=== PATIENT | female | born 1960 | race Caucasian/White ===

== ENCOUNTER → 2017-08-12 06:13 | Outpatient (CLI) | payer OTHER, SELFPAY ==
--- NOTE | 2017-08-12 09:33 | STRESSREP ---
Stress Test Report Date: 08/12/2017 Procedure: Exercise tolerance test/imaging study Indications: Chest pain Consent: Per the patient Procedure: The patient exercised on a Phillip protocol for 9 minutes completing stage III achieving a peak heart rate of 153 bpm (93 % predicted maximal heart rate) with a peak blood pressure 170/72 mmHg and a peak MET capacity of 10 METs. The baseline ECG demonstrated normal sinus rhythm. The peak exercise ECG demonstrated somatic/motion artifact with beat to beat nonspecific ST segment variability with the peak recovery ECG demonstrating approximately 0.[address] segment depression in leads II, III, aVF, and V4 through V6 with resolution towards baseline beginning by 1 minute in recovery. [There were no cardiac dysrhythmias pretest, during exercise, or recovery]. The functional capacity was considered good. There was [no complaint of chest discomfort during exercise or recovery]. The examination was discontinued secondary to dyspnea. Impression: 1. Technically adequate (percent predicted maximal heart rate greater than 85%) exercise tolerance test 2. Peak exercise ECG demonstrating somatic/motion artifact with beat to beat nonspecific ST segment variability with the peak recovery ECG demonstrating approximately 0.[address] segment depression in leads II, III, aVF, and V4 through V6 with resolution towards baseline getting by 1 minute in recovery 3. There were no cardiac dysrhythmias pretest, during exercise, or recovery. 4. Nuclear images pending Myocardial perfusion imaging study: Technique: The patient was injected with 11.9 mCi of technetium 99m Cardiolite and subsequently rest SPECT Cardiolite nuclear imaging was obtained in the horizontal long, vertical long, and short axis views. The patient exercised on a Phillip protocol for 9 minutes completing stage III achieving a peak heart rate of 153 bpm (93 % predicted maximal heart rate) with a peak blood pressure 170/72 mmHg and a peak MET capacity of 10 METs. The patient was injected with 34.2 mCi of technetium 99m Cardiolite and subsequently stress SPECT Cardiolite nuclear imaging was obtained in the horizontal long, vertical long, and short axis views. A gated Cardiolite study at peak stress was obtained. Interpretation: Rest and stress SPECT Cardiolite nuclear imaging status post realignment, normalization, and attenuation correction, demonstrates [the appearance of relative uniform tracer uptake and myocardial perfusion appearing within normal limits]. [There is end systolic thickening and brightening]. The gated Cardiolite study demonstrates [myocardial thickening and inward wall motion]. The reported LVEF is 63 %. Impression: 1. Rest and stress SPECT Cardiolite nuclear imaging demonstrate [relative uniform tracer uptake and myocardial perfusion appearing within normal limits]. 2. The gated Cardiolite study reports an LVEF of 63%. This note was generated with [employer] software. It may contain incorrect words, spelling, and punctuation that were not noted in checking the note before signing.
--- NOTE | 2017-08-12 09:39 | STRESSREP_ITS ---
Stress Test Report Date: 08/12/2017 Procedure: Exercise tolerance test/imaging study Indications: Chest pain Consent: Per the patient Procedure: The patient exercised on a Phillip protocol for 9 minutes completing stage III achieving a peak heart rate of 153 bpm (93 % predicted maximal heart rate) with a peak blood pressure 170/72 mmHg and a peak MET capacity of 10 METs. The baseline ECG demonstrated normal sinus rhythm. The peak exercise ECG demonstrated somatic/motion artifact with beat to beat nonspecific ST segment variability with the peak recovery ECG demonstrating approximately 0.[address] segment depression in leads II, III, aVF, and V4 through V6 with resolution towards baseline beginning by 1 minute in recovery. [There were no cardiac dysrhythmias pretest, during exercise, or recovery]. The functional capacity was considered good. There was [no complaint of chest discomfort during exercise or recovery]. The examination was discontinued secondary to dyspnea. Impression: 1. Technically adequate (percent predicted maximal heart rate greater than 85% ) exercise tolerance test 2. Peak exercise ECG demonstrating somatic/motion artifact with beat to beat nonspecific ST segment variability with the peak recovery ECG demonstrating approximately 0.[address] segment depression in leads II, III, aVF, and V4 through V6 with resolution towards baseline getting by 1 minute in recovery 3. There were no cardiac dysrhythmias pretest, during exercise, or recovery. 4. Nuclear images pending Myocardial perfusion imaging study: Technique: The patient was injected with 11.9 mCi of technetium 99m Cardiolite and subsequently rest SPECT Cardiolite nuclear imaging was obtained in the horizontal long, vertical long, and short axis views. The patient exercised on a Phillip protocol for 9 minutes completing stage III achieving a peak heart rate of 153 bpm (93 % predicted maximal heart rate) with a peak blood pressure 170/ 72 mmHg and a peak MET capacity of 10 METs. The patient was injected with 34.2 mCi of technetium 99m Cardiolite and subsequently stress SPECT Cardiolite nuclear imaging was obtained in the horizontal long, vertical long, and short axis views. A gated Cardiolite study at peak stress was obtained. Interpretation: Rest and stress SPECT Cardiolite nuclear imaging status post realignment, normalization, and attenuation correction, demonstrates [the appearance of relative uniform tracer uptake and myocardial perfusion appearing within normal limits]. [There is end systolic thickening and brightening]. The gated Cardiolite study demonstrates [myocardial thickening and inward wall motion]. The reported LVEF is 63 %. Impression: 1. Rest and stress SPECT Cardiolite nuclear imaging demonstrate [relative uniform tracer uptake and myocardial perfusion appearing within normal limits]. 2. The gated Cardiolite study reports an LVEF of 63%. This note was generated with [employer] software. It may contain incorrect words, spelling, and punctuation that were not noted in checking the note before signing.
== END ==
PROVIDERS: Family Provider Family Medicine; PCP Family Medicine; Visit Provider Family Medicine
DX: R07.9 Chest pain, unspecified (principal); I10 Essential (primary) hypertension; R73.01 Impaired fasting glucose; Z72.0 Tobacco use
CPT/HCPCS: 78452; 93017; A9500; A4216

== ENCOUNTER → 2018-01-24 16:25 | Outpatient (CLI) | payer OTHER, SELFPAY ==
[2018-01-24 17:30] LABS: Absolute Lymphocyte Count 3.54 X10^3/ul (0.83-4.51); Absolute Neutrophil Count 4.5 X10^3/uL (2.0-7.7); Basophil# 0.03 X10^3/uL; Basophil% 0.3 % (0-1); Eosinophil# 0.31 X10^3/uL; Eosinophils% 3.3 % (0-5); Hematocrit 38.9 % (37-47); Hemoglobin 12.6 g/dl (12.0-15.0); Lymphocyte # 3.54 X10^3/ul (4.0); Lymphocyte % 37.9 % (19-41); Mean Corp Hgb Conc 32.4 g/gl (32-36); Mean Corpuscular Hgb 31.4 pg (27.0-32.0); Mean Platelet Vol. 10.3 fl (6.2-12.0); Monocyte# 0.91 X10^3/uL; Monocyte% 9.7 % (0-10); Neutrophil # 4.52 X10^3/uL (2.7-7.7); Neutrophil % 48.5 % (47-70); Platelet Count 312 K/mm3 (150-450); RBC Distribution Width CV 14.9 % (11.6-14.6); RBC Distribution Width SD 51.7 fl (35.1-43.9); Red Blood Count 4.01 M/mm3 (4.2-5.4); White Blood Count 9.3 K/mm3 (4.4-11.0)
[2018-01-24 17:31] LABS: POSITIVE COUNT NO; POSITIVE DIFFERENTIAL NO; POSITIVE MORPHOLOGY NO
[2018-01-24 17:50] LABS: ALB/GLOB Ratio 0.8 RATIO (0.9-2.4); AST(SGOT) 23 U/L (15-37); Alanine Aminotransfer ALT/SGPT 28 U/L (13-56); Albumin, Serum 3.4 g/dL (3.2-5.0); Alkaline Phosphatase 115 U/L (45-117); Anion Gap 5 (5-15); BUN 19 mg/dL (7-18); BUN/Creat Ratio 21.9 RATIO (10-20); Calcium,Total 9.1 mg/dL (8.5-10.1); Chloride 101 mmol/L (98-107); Creatinine, Serum 0.87 mg/dL (0.55-1.02); EST Glomerular Filtration Rate 72 mL/min (>60); Est Glom Filt Rate - Afr Amer 87 mL/min (>60); Glucose 104 mg/dL (74-106); Potassium 3.6 mmol/L (3.5-5.1); Protein, Total 7.4 g/dL (6.4-8.2); Sodium Level 138 mmol/L (136-145)
== END ==
PROVIDERS: Family Provider Family Medicine; PCP Family Medicine; Visit Provider Family Medicine
DX: R10.9 Unspecified abdominal pain (principal)
CPT/HCPCS: 36415; 80053; 85025

== ENCOUNTER → 2018-06-14 08:29 | Outpatient (CLI) | payer OTHER, SELFPAY ==
[2018-05-25 08:42] VITALS: BMI 31.5
--- NOTE | 2018-06-14 07:20 | BI_ITS ---
MAMMOGRAPHY - BILATERAL SCREENING REASON FOR EXAM: Female, 58 years old. Routine annual screening examination. PERTINENT HISTORY: Non-contributory. TECHNIQUE: Digital bilateral breast sofía (3D mammographic acquisition) in the CC and MLO projections. 2-D mediolateral oblique (MLO) and craniocaudad (CC) views of both breasts were obtained. CAD: Full Field Digital Mammography with Computer Added Detection was performed. COMPARISON: Comparison is made with prior study dated May 11, 2017. FINDINGS: Breast Composition: The breasts are heterogeneously dense, which may obscure small masses. There are no dominant masses or suspicious calcifications. No other significant abnormalities are identified. There has been no significant change since the prior study. BI/SCREEN MAMM (CAD) W/SOFÍA BILAT IMPRESSION: Stable bilateral screening mammogram. Yearly follow-up mammogram recommended. (A) ASSESSMENT CATEGORY: BIRADS Category 1: Negative. A letter regarding these results will be sent to the patient by the facility within 30 days. Approximately 10% of breast cancers are not detected by mammography. A normal mammogram should not delay biopsy of a clinically suspicious abnormality. [id number] Electronically Signed: Jack Shea MD at 9:03 EST , Service support ,
== END ==
PROVIDERS: Family Provider Family Medicine; PCP Family Medicine; Referring Provider Nurse Practitioner Women's Health; Visit Provider Nurse Practitioner Women's Health
DX: Z12.31 Encounter for screening mammogram for malignant neoplasm of breast (principal)
CPT/HCPCS: 77063; 77067

== ENCOUNTER → 2018-08-16 12:26 | Outpatient (CLI) | payer OTHER, SELFPAY ==
[2018-07-25 10:50] VITALS: BMI 31.5
--- NOTE | 2018-08-16 13:23 | CT_ITS ---
STUDY: LOW DOSE CT LUNG CANCER SCREENING REASON FOR EXAM: Female, 58 years old. 40 year pack year smoking history. RADIATION DOSAGE (If Supplied By Facility): CTDIvol = ( 2.55 ) mGy, DLP = ( 81.69 ) mGycm TECHNIQUE: No contrast was administered. Low dose technique was utilized (average mAS-38 and kVp 120). 1.25 mm axial source images with a slice interval of 1.25-mm were reconstructed in lung windows. 2.5 mm axial source images with a slice interval of 2.5-mm were reconstructed in lung windows. 5.0 mm axial source images with a slice interval of 5.0-mm were reconstructed in soft tissue windows. Nodule measured using lung windows on PACS and/or independent workstation with automated measurement of minimum and maximum diameter. Nodule measurement reported as average diameter rounded to the nearest whole number. Growth is defined as an increase ins size of greater than 1.5 mm. COMPARISON: None. NODULES: No pulmonary nodules are seen. Emphysema: No evidence of emphysema. Endobronchial lesion: None. Aorta: Minimal atherosclerotic calcification of the aortic arch. Coronary arteries: Coronary artery calcification. Mediastinal nodes: Small mediastinal lymph nodes within normal limits. Other chest and abdominal findings: Degenerative changes of the thoracic vertebrae. CT/Low Dose CT Lung Screening IMPRESSION: Lung-RADS category 2 - Continue annual screening with LDCT in 12 months. IMPORTANT NOTES FOR USE: ACR Lung-RADS Version 1.0 Assessment Categories Release Date: August 28, 2013 Category: Coded 0-4 bases on nodule(s) with highest degree of suspicion. Negative screen is defined as categories 1 and 2; a positive screen is defined as categories 3 and 4. Category 3 and 4A nodules that are unchanged on interval CT should be coded as category 2, and individuals returned to screening in 12 months. Category 4X: Category 3 or 4 nodules with additional imaging findings that increase the suspicion of lung cancer, such as spiculation, GGN that doubles in size in 1 year, enlarged lymph notes, etc. Category Modifiers: S (significant finding unrelated to lung cancer) and C (prior history of treated lung cancer) may be added to the 0-4 Lung-RADS Electronically Signed: Jack Shea, at 14:03 EDT , Service support ,
== END ==
PROVIDERS: Family Provider Family Medicine; PCP Family Medicine; Referring Provider Nurse Practitioner Family; Visit Provider Nurse Practitioner Family
DX: Z12.2 Encounter for screening for malignant neoplasm of respiratory organs (principal); Z87.891 Personal history of nicotine dependence
CPT/HCPCS: G0297

== ENCOUNTER → 2018-08-18 08:42 | Outpatient (CLI) | payer OTHER, SELFPAY ==
[2018-07-25 10:50] VITALS: BMI 31.5
[2018-08-16 12:50] VITALS: BMI 32.4
--- NOTE | 2018-08-18 15:05 | PFTCOMP ---
COMPLETE PULMONARY FUNCTION TEST INTERPRETATION Brief HPI: Patient is a 58 year old female, currently under the care of Dr. Lao, who presents to [facility] for complete pulmonary function tests secondary to diagnosis of dyspnea. Respiratory therapist reports good effort and reproducible results. Interpretation: Forced expiration spirometry shows a mild large airways obstructive ventilatory defect with an FEV1 of 90% predicted. There is a significant bronchodilator response in FEV1 by strict ATS criteria. Spirograms are of good quality and plateau slowly, indicating slowly emptying areas of the lungs. The respiratory flow volume loop shows decreased expiratory flow rates at all lung volumes consistent with airway obstruction. Lung volumes by body plethysmography show a normal total lung capacity at 4.89 L, 104% predicted. All other lung volumes are within normal limits. Diffusion capacity by carbon monoxide is at the lower limit of normal at 65% predicted. The airway resistance is elevated. No previous pulmonary function tests were available for review. Impression: Partially reversible mild large airways obstructive ventilatory defect with a symmetric reduction diffusing capacity
== END ==
PROVIDERS: Family Provider Family Medicine; PCP Family Medicine; Referring Provider Family Medicine; Visit Provider Family Medicine
DX: R06.02 Shortness of breath (principal); Z72.0 Tobacco use
CPT/HCPCS: 94060; 94726; 94729

== ENCOUNTER → 2018-08-26 14:44 | Outpatient (CLI) | payer OTHER, SELFPAY ==
[2018-08-16 12:50] VITALS: BMI 32.4
[2018-08-26 16:01] LABS: Anion Gap 7 (5-15); BUN 20 mg/dL (7-18); BUN/Creat Ratio 21.5 RATIO (10-20); Calcium,Total 9.1 mg/dL (8.5-10.1); Chloride 102 mmol/L (98-107); Creatinine, Serum 0.93 mg/dL (0.55-1.02); EST Glomerular Filtration Rate 66 mL/min (>60); Est Glom Filt Rate - Afr Amer 80 mL/min (>60); Glucose 133 mg/dL (74-106); Potassium 3.5 mmol/L (3.5-5.1); Sodium Level 139 mmol/L (136-145)
== END ==
PROVIDERS: Family Provider Family Medicine; PCP Family Medicine; Referring Provider Family Medicine; Visit Provider Family Medicine
DX: I10 Essential (primary) hypertension (principal)
CPT/HCPCS: 36415; 80048

== ENCOUNTER 2018-11-28 13:00 | Outpatient (RCR) | payer OTHER, SELFPAY ==
[2018-08-16 12:50] VITALS: BMI 32.4
[2018-10-24 14:54] VITALS: BMI 32.4
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
--- NOTE | 2019-01-03 10:16 | HP.PTDCSUM ---
HP - PT D/C Summary It has been my pleasure to treat DIVYA PETTY under orders from Mario Bass MD, for the diagnosis of DDD,SPONYLOSIS OF LUMBAR for a total of 8 visit(s). Discharge Date: Please see the following information for a summary of their discharge status. - Subjective Subjective: Doing about same . 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 Seen chiropractor as well - Pain Left Back Pain Intensity (Out of 10): 7 Left Lower Extremity Pain Intensity (Out of 10): 7 - Objective Objective/Function: POSTURE: mild posture. GAIT: reciprcoal pattern. MMT:quads/hams 4/5,hip flexion 4-/5. LUMBAR ROM: flexion loss,extension mod loss pain - Goals Goal 1:: Independant with HEP. Goal 2:: Patient to be Independant with posture/body mechanics Goal 3:: Patient to be 60% or better with kless pain to improve function Goal 4:: Patient improve lumbar ROM for function of recovery Goal 5:: Patient to improve back owestry score by 5 points or greater to improve QOL - Plan Plan: RTD for further diagnostics - D/C Information If there are questions or concerns regarding this patient's physical therapy, please feel free to call me at [phone]. Thank you for the referral of this patient. Sincerely, Rolan Leggett, PT, Cert MDT, OCS
== END 2018-11-28 19:00 | disposition home or self-care (01) ==
LOC: PT 13:00
PROVIDERS: Family Provider Family Medicine; PCP Family Medicine; Referring Provider Orthopaedic Surgery; Visit Provider Orthopaedic Surgery
DX: M54.16 Radiculopathy, lumbar region (principal)
CPT/HCPCS: 97014; 97035; 97110; 97161; 97530; G0283

== ENCOUNTER → 2019-02-22 07:15 | Outpatient (CLI) | payer SELFPAY ==
[2018-10-24 14:54] VITALS: BMI 32.4
--- NOTE | 2019-02-22 07:17 | MRI_ITS ---
STUDY: MRI LUMBAR SPINE WITHOUT CONTRAST REASON FOR EXAM: Female, 58 years old. Low back pain, bilateral leg pain and radiculopathy. TECHNIQUE: Standardized fat and water weighted pulse sequences were obtained in the sagittal and axial planes. COMPARISON: None FINDINGS: T12-L1: Normal endplates. Normal disc height, hydration and morphology. Normal bilateral facet joints. Normal central canal and bilateral lateral recesses. Normal bilateral intervertebral neural foramina. Normal lumbar lordosis. Mild levoscoliosis centered at L3/L4. Normal conus medullaris that terminates at the L1. L1-2: Normal endplates. Normal disc height, hydration and morphology. Normal bilateral facet joints. Normal central canal and bilateral lateral recesses. Normal bilateral intervertebral neural foramina. L2-3: Mild bilateral facet hypertrophy and ligament flavum hypertrophy. Mild bilobed disc protrusion produces mild spinal stenosis and mild bilateral neural foraminal stenosis. L3-4: Mild bilateral facet hypertrophy and ligament flavum hypertrophy. 2 mm of anterolisthesis of L3 on L4 with a mild bilobed disc protrusion produces mild spinal stenosis and mild bilateral neural foraminal stenosis. L4-5: Mild broad disc protrusion produces mild spinal stenosis and mild bilateral neural foraminal stenosis L5-S1: Normal endplates. Normal disc height, hydration and morphology. Normal bilateral facet joints. Normal central canal and bilateral lateral recesses. Normal bilateral intervertebral neural foramina. Normal visualized sacral ala. Normal visualized paraspinous soft tissue structures. MRI/Spine Lumbar (Routine) IMPRESSION: Mild levoscoliosis and degenerative disc disease as described above. Electronically Signed: Jhon Feliciano MD at 10:23 EDT Tel , Service support ,
== END ==
PROVIDERS: Family Provider Family Medicine; PCP Family Medicine; Referring Provider Chiropractor; Visit Provider Chiropractor
DX: M99.03 Segmental and somatic dysfunction of lumbar region (principal)
CPT/HCPCS: 72148

== ENCOUNTER → 2019-04-24 07:11 | Outpatient (CLI) | payer OTHER, SELFPAY ==
[2019-04-12 15:47] VITALS: BMI 32.2
--- NOTE | 2019-04-24 07:23 | EKG12_ITS ---
Test Reason : ROUTINE Blood Pressure : / mmHG Vent. Rate : 066 BPM Atrial Rate : 066 BPM P-R Int : 156 ms QRS Dur : 082 ms QT Int : 386 ms P-R-T Axes : 068 072 073 degrees QTc Int : 404 ms Normal sinus rhythm Normal ECG Confirmed by NNEKA VALDEZ, BUDDY ([id number]), news assignment editor LORETO JARA ([id number]) on 04/25/2019 11:43:33 AM Referred By: Anne-Marie Martínez Confirmed By:BUDDY EARLY MD
[2019-04-24 08:15] LABS: Absolute Lymphocyte Count 3.58 X10^3/uL (0.83-4.51); Absolute Neutrophil Count 5.5 X10^3/uL (2.0-7.7); Basophil# 0.04 X10^3/uL; Basophil% 0.4 % (0-1); Eosinophil# 0.33 X10^3/uL; Eosinophils% 3.2 % (0-5); Hematocrit 37.7 % (37-47); Lymphocyte # 3.58 X10^3/ul (4.0); Lymphocyte % 34.3 % (19-41); Mean Corp Hgb Conc 31.8 g/dL (32-36); Mean Corpuscular Hgb 28.2 pg (27.0-32.0); Mean Corpuscular Volume 88.7 fL (81-99); Mean Platelet Vol. 9.7 fl (6.2-12.0); Monocyte# 0.92 X10^3/uL; Monocyte% 8.8 % (0-10); NRBC Flagged by Analyzer 0 % (0-5); Neutrophil % 52.6 % (47-70); POSITIVE MORPHOLOGY YES; Platelet Count 375 K/mm3 (150-450); RBC Distribution Width CV 16.2 % (11.6-14.6); RBC Distribution Width SD 52.5 fl (35.1-43.9); Red Blood Count 4.25 M/mm3 (4.2-5.4); White Blood Count 10.4 K/mm3 (4.4-11.0)
[2019-04-24 08:16] LABS: Differential Indicated SCAN CRITERIA MET
[2019-04-24 08:39] LABS: ALB/GLOB Ratio 0.9 RATIO (0.9-2.4); AST(SGOT) 23 U/L (15-37); Alanine Aminotransfer ALT/SGPT 32 U/L (13-56); Albumin, Serum 3.5 g/dL (3.2-5.0); Alkaline Phosphatase 114 U/L (45-117); Anion Gap 6 (5-15); BUN 13 mg/dL (7-18); BUN/Creat Ratio 15.3 RATIO (10-20); Calcium,Total 9.2 mg/dL (8.5-10.1); Chloride 97 mmol/L (98-107); Cholesterol 184 mg/dL (200); Creatinine, Serum 0.85 mg/dL (0.55-1.02); EST Glomerular Filtration Rate 73 mL/min (>60); Est Glom Filt Rate - Afr Amer 88 mL/min (>60); Glucose 106 mg/dL (74-106); High Density Lipoprotein 58 mg/dL; Potassium 3.2 mmol/L (3.5-5.1); Protein, Total 7.5 g/dL (6.4-8.2); Sodium Level 135 mmol/L (136-145); Triglycerides 178 mg/dL; Very Low Density Lipoprotein 36 mg/dL (5-40)
[2019-04-24 08:49] LABS: Differential Comment SCANNED; Reactive Lymphocyte 1+
== END ==
PROVIDERS: Family Provider Internal Medicine; PCP Internal Medicine; Referring Provider Internal Medicine; Visit Provider Internal Medicine
DX: I10 Essential (primary) hypertension (principal)
CPT/HCPCS: 36415; 80053; 80061; 85025; 93005

== ENCOUNTER → 2019-07-05 10:41 | Outpatient (CLI) | payer OTHER, SELFPAY ==
[2019-05-24 13:24] VITALS: BMI 32.2
[2019-07-05 13:07] LABS: Anion Gap 5 (5-15); BUN 16 mg/dL (7-18); BUN/Creat Ratio 18.8 RATIO (10-20); Calcium,Total 9.4 mg/dL (8.5-10.1); Chloride 102 mmol/L (98-107); Creatinine, Serum 0.85 mg/dL (0.55-1.02); EST Glomerular Filtration Rate 73 mL/min (>60); Est Glom Filt Rate - Afr Amer 88 mL/min (>60); Glucose 87 mg/dL (74-106); Potassium 3.7 mmol/L (3.5-5.1); Sodium Level 137 mmol/L (136-145)
== END ==
PROVIDERS: PCP Internal Medicine; Referring Provider Nurse Practitioner Family; Visit Provider Nurse Practitioner Family
DX: I10 Essential (primary) hypertension (principal); E87.6 Hypokalemia
CPT/HCPCS: 36415; 80048

== ENCOUNTER → 2019-09-26 12:30 | Outpatient (CLI) | payer OTHER, SELFPAY ==
[2019-08-25 10:07] VITALS: BMI 32.2
[2019-09-26 12:11] VITALS: BMI 31.8
--- NOTE | 2019-09-26 12:31 | CT_ITS ---
STUDY: LOW DOSE CT LUNG CANCER SCREENING REASON FOR EXAM: Female, 59 years old. TOBACCO ABUSE 1PPD X38 YEARS RADIATION DOSAGE (If Supplied By Facility): CTDIvol = ( 3.02 ) mGy, DLP = ( 102.69 ) mGycm TECHNIQUE: No contrast was administered. Low dose technique was utilized (average mAS-38 and kVp 120). 1.25 mm axial source images with a slice interval of 1.25-mm were reconstructed in lung windows. 2.5 mm axial source images with a slice interval of 2.5-mm were reconstructed in lung windows. 5.0 mm axial source images with a slice interval of 5.0-mm were reconstructed in soft tissue windows. Nodule measured using lung windows on PACS and/or independent workstation with automated measurement of minimum and maximum diameter. Nodule measurement reported as average diameter rounded to the nearest whole number. Growth is defined as an increase ins size of greater than 1.5 mm. COMPARISON: Comparison is made with prior examination dated August 16, 2018. NODULES: No pulmonary nodules are seen. Emphysema: No significant emphysematous changes are present. Endobronchial lesion: None Aorta: Minimal atherosclerotic calcification of the aortic arch. Coronary arteries: Coronary artery calcification. Mediastinal nodes: Small scattered benign-appearing mediastinal lymph nodes. Other chest and abdominal findings: Degenerative changes of the thoracic spine. CT/Low Dose CT Lung Screening IMPRESSION: Lung-RADS category 2 - Continue annual screening with LDCT in 12 months. IMPORTANT NOTES FOR USE: ACR Lung-RADS Version 1.0 Assessment Categories Release Date: August 28, 2013 Category: Coded 0-4 bases on nodule(s) with highest degree of suspicion. Negative screen is defined as categories 1 and 2; a positive screen is defined as categories 3 and 4. Category 3 and 4A nodules that are unchanged on interval CT should be coded as category 2, and individuals returned to screening in 12 months. Category 4X: Category 3 or 4 nodules with additional imaging findings that increase the suspicion of lung cancer, such as spiculation, GGN that doubles in size in 1 year, enlarged lymph notes, etc. Category Modifiers: S (significant finding unrelated to lung cancer) and C (prior history of treated lung cancer) may be added to the 0-4 Lung-RADS Electronically Signed: Jack Shea, at 13:01 EDT , Service support ,
== END ==
PROVIDERS: PCP Internal Medicine; Referring Provider Nurse Practitioner Family; Visit Provider Nurse Practitioner Family
DX: Z12.2 Encounter for screening for malignant neoplasm of respiratory organs (principal); F17.209 Nicotine dependence, unspecified, with unspecified nicotine-induced disorders
CPT/HCPCS: G0297

== ENCOUNTER → 2020-02-02 09:08 | Outpatient (CLI) | payer OTHER, SELFPAY ==
[2020-02-02 08:21] VITALS: BMI 31.8
[2020-02-02 12:14] LABS: Absolute Lymphocyte Count 2.75 X10^3/uL (0.83-4.51); Absolute Neutrophil Count 4.9 X10^3/uL (2.0-7.7); Basophil# 0.05 X10^3/uL; Basophil% 0.6 % (0-1); Eosinophil# 0.26 X10^3/uL; Hemoglobin 14.2 g/dL (12.0-15.0); Lymphocyte # 2.75 X10^3/ul (4.0); Lymphocyte % 31.5 % (19-41); Mean Corp Hgb Conc 32.3 g/dL (32-36); Mean Corpuscular Hgb 31.6 pg (27.0-32.0); Mean Platelet Vol. 10.2 fl (6.2-12.0); Monocyte# 0.71 X10^3/uL; Monocyte% 8.1 % (0-10); NRBC Flagged by Analyzer 0 % (0-5); Neutrophil # 4.93 X10^3/uL (2.7-7.7); Neutrophil % 56.5 % (47-70); Platelet Count 298 K/mm3 (150-450); RBC Distribution Width CV 14.3 % (11.6-14.6); RBC Distribution Width SD 51.8 fl (35.1-43.9); Red Blood Count 4.49 M/mm3 (4.2-5.4); White Blood Count 8.7 K/mm3 (4.4-11.0)
[2020-02-02 12:32] LABS: Hemoglobin A1c 5.9 % (3.8-5.6)
[2020-02-02 12:56] LABS: AST(SGOT) 20 U/L (15-37); Alanine Aminotransfer ALT/SGPT 26 U/L (13-56); Albumin, Serum 3.8 g/dL (3.2-5.0); Alkaline Phosphatase 111 U/L (45-117); Anion Gap 4 (5-15); BUN 11 mg/dL (7-18); BUN/Creat Ratio 14.6 RATIO (10-20); Calcium,Total 9.5 mg/dL (8.5-10.1); Chloride 102 mmol/L (98-107); Cholesterol 208 mg/dL (200); Creatinine, Serum 0.76 mg/dL (0.55-1.02); EST Glomerular Filtration Rate 83 mL/min (>60); Est Glom Filt Rate - Afr Amer 101 mL/min (>60); Globulin 3.9 g/dL (2.2-4.2); Glucose 94 mg/dL (74-106); High Density Lipoprotein 70 mg/dL; Potassium 4.3 mmol/L (3.5-5.1); Protein, Total 7.7 g/dL (6.4-8.2); Sodium Level 135 mmol/L (136-145); Triglycerides 140 mg/dL; Very Low Density Lipoprotein 28 mg/dL (5-40)
== END ==
PROVIDERS: PCP Internal Medicine; Referring Provider Internal Medicine; Visit Provider Internal Medicine
DX: Z00.00 Encounter for general adult medical examination without abnormal findings (principal); R73.03 Prediabetes
CPT/HCPCS: 36415; 80053; 80061; 83036; 85025

== ENCOUNTER → 2020-02-23 12:23 | Outpatient (CLI) | payer OTHER, SELFPAY ==
[2020-02-02 08:21] VITALS: BMI 31.8
--- NOTE | 2020-02-23 12:25 | BI_ITS ---
MAMMOGRAPHY - BILATERAL SCREENING REASON FOR EXAM: Female, 59 years old. Routine annual screening examination. PERTINENT HISTORY: Non-contributory. TECHNIQUE: Digital bilateral breast sofía (3D mammographic acquisition) in the CC and MLO projections. 2-D mediolateral oblique (MLO) and craniocaudad (CC) views of both breasts were obtained. CAD: Full Field Digital Mammography with Computer Added Detection was performed. COMPARISON: Comparison is made with prior examination dated 06/14/2018 and 05/11/2017. FINDINGS: Breast Composition: The breasts are heterogeneously dense, which may obscure small masses. There are no dominant masses or suspicious calcifications. No other significant abnormalities are identified. There has been no significant change since the prior study. BI/SCREEN MAMM (CAD) W/SOFÍA BILAT IMPRESSION: Stable bilateral screening mammogram. Yearly follow-up mammogram recommended. (A) ASSESSMENT CATEGORY: BIRADS Category 1: Negative. A letter regarding these results will be sent to the patient by the facility within 30 days. Approximately 10% of breast cancers are not detected by mammography. A normal mammogram should not delay biopsy of a clinically suspicious abnormality. [id number] Electronically Signed: Jack Shea, at 14:34 EDT , Service support ,
== END ==
PROVIDERS: PCP Internal Medicine; Referring Provider Internal Medicine; Visit Provider Internal Medicine
DX: Z12.31 Encounter for screening mammogram for malignant neoplasm of breast (principal)
CPT/HCPCS: 77063; 77067

== ENCOUNTER → 2020-03-12 13:24 | Outpatient (CLI) | payer OTHER, SELFPAY ==
[2020-03-01 08:44] VITALS: BMI 32.1
--- NOTE | 2020-03-12 13:35 | RAD_ITS ---
STUDY: X-RAY - ABDOMEN/PELVIS REASON FOR EXAM: Female, 59 years old. left sided/mid abdomen pain TECHNIQUE: AP supine and upright views of the abdomen and pelvis. COMPARISON: None. FINDINGS: Normal visualized lung bases. There is an unremarkable bowel gas pattern. There is no demonstrated free abdominal air. The visualized liver, spleen and kidneys are grossly normal in size and morphology. Normal soft tissue structures. Mild levoscoliosis of the lumbar spine. RAD/Abd Inc Decub and/or Erect IMPRESSION: Normal x-ray examination of the abdomen and pelvis. Electronically Signed: Jhon Feliciano MD at 17:04 EST Tel , Service support ,
[2020-03-12 15:24] LABS: Absolute Lymphocyte Count 2.97 X10^3/uL (0.83-4.51); Absolute Neutrophil Count 5.1 X10^3/uL (2.0-7.7); Basophil# 0.04 X10^3/uL; Basophil% 0.4 % (0-1); Eosinophil# 0.35 X10^3/uL; Eosinophils% 3.8 % (0-5); Hematocrit 40.2 % (37-47); Hemoglobin 12.9 g/dL (12.0-15.0); Lymphocyte # 2.97 X10^3/ul (4.0); Lymphocyte % 32.3 % (19-41); Mean Corp Hgb Conc 32.1 g/dL (32-36); Mean Corpuscular Hgb 32.4 pg (27.0-32.0); Mean Platelet Vol. 10.7 fl (6.2-12.0); Monocyte# 0.71 X10^3/uL; Monocyte% 7.7 % (0-10); NRBC Flagged by Analyzer 0 % (0-5); Neutrophil # 5.08 X10^3/uL (2.7-7.7); Neutrophil % 55.4 % (47-70); Platelet Count 292 K/mm3 (150-450); RBC Distribution Width CV 13.8 % (11.6-14.6); RBC Distribution Width SD 51.8 fl (35.1-43.9); Red Blood Count 3.98 M/mm3 (4.2-5.4); White Blood Count 9.2 K/mm3 (4.4-11.0)
[2020-03-12 15:45] LABS: ALB/GLOB Ratio 0.9 RATIO (0.9-2.4); AST(SGOT) 23 U/L (15-37); Alanine Aminotransfer ALT/SGPT 36 U/L (13-56); Albumin, Serum 3.6 g/dL (3.2-5.0); Alkaline Phosphatase 76 U/L (45-117); Anion Gap 6 (5-15); BUN 21 mg/dL (7-18); BUN/Creat Ratio 28.3 RATIO (10-20); CRP, High Sensitivity Cardiac 7.86 mg/L; Calcium,Total 9.1 mg/dL (8.5-10.1); Chloride 103 mmol/L (98-107); Creatinine, Serum 0.74 mg/dL (0.55-1.02); EST Glomerular Filtration Rate 85 mL/min (>60); Est Glom Filt Rate - Afr Amer 103 mL/min (>60); Globulin 3.8 g/dL (2.2-4.2); Glucose 85 mg/dL (74-106); Potassium 4.1 mmol/L (3.5-5.1); Protein, Total 7.4 g/dL (6.4-8.2); Sodium Level 137 mmol/L (136-145)
== END ==
PROVIDERS: PCP Internal Medicine; Referring Provider Family Medicine; Visit Provider Family Medicine
DX: R10.9 Unspecified abdominal pain (principal)
CPT/HCPCS: 36415; 74019; 80053; 85025; 86141

== ENCOUNTER → 2020-05-13 14:53 | Outpatient (CLI) | payer OTHER, SELFPAY ==
[2020-05-07 09:41] VITALS: BMI 32.4
--- NOTE | 2020-05-13 15:06 | CT_ITS ---
STUDY: CT ABDOMEN AND PELVIS WITH CONTRAST REASON FOR EXAM: Female, 60 years old. ABDOMINAL PAIN X MONTHS RADIATION DOSAGE (If Supplied By Facility): CTDIvol = ( 13.73 ) mGy, DLP = ( 888.18 ) mGycm TECHNIQUE: Transaxial images were obtained from the dome of the diaphragm to the symphysis pubis with oral contrast. Oral and amp; IV Readi-CAT and amp; 100mL Isovue-370 was administered. Sagittal and coronal images were reconstructed. Individualized dose optimization techniques were used for this CT. COMPARISON: None. FINDINGS: The visualized lung bases are unremarkable. The visualized portions of the heart are within normal limits. Multiple small subcentimeter hepatic cysts. Normal gallbladder and extrahepatic biliary system. Normal spleen. Normal pancreas. Normal bilateral adrenal glands. Normal right kidney. Normal left kidney. Normal visualized stomach. Normal small intestine. Normal colon. The appendix is visualized and appears normal. There is diffuse atherosclerotic calcification of the abdominal aorta, without a demonstrated aneurysm. Normal inferior vena cava. Normal retroperitoneum. Normal urinary bladder. There is a small umbilical hernia containing fat. Mild levoscoliosis lumbar spine with degenerative disc disease per CT/Abdomen/Pelvis WITH Contrast IMPRESSION: No acute abnormality. Electronically Signed: Jhon Feliciano MD at 16:05 EST Tel , Service support ,
== END ==
PROVIDERS: PCP Internal Medicine; Referring Provider Internal Medicine; Visit Provider Internal Medicine
DX: K57.92 Diverticulitis of intestine, part unspecified, without perforation or abscess without bleeding (principal)
CPT/HCPCS: 74177; Q9967

== ENCOUNTER → 2020-06-14 12:38 | Outpatient (CLI) | payer OTHER, SELFPAY ==
[2020-05-07 09:41] VITALS: BMI 32.4
== END ==
PROVIDERS: PCP Internal Medicine; Visit Provider Family Medicine
DX: Z20.822 Contact with and (suspected) exposure to COVID-19 (principal)
CPT/HCPCS: 87635; U0002

== ENCOUNTER → 2020-07-17 16:26 | Outpatient (CLI) | payer OTHER, SELFPAY ==
[2020-05-07 09:41] VITALS: BMI 32.4
[2020-07-19 16:09] LABS: Endomysial Antibody IgA Negative (Negative)
[2020-07-19 17:06] LABS: Immunoglobulin A 217 mg/dL (87-352); t-Transglutaminase IgA <2 U/mL (0-3)
== END ==
PROVIDERS: PCP Internal Medicine; Referring Provider Internal Medicine Gastroenterology; Visit Provider Internal Medicine Gastroenterology
DX: R19.7 Diarrhea, unspecified (principal)
CPT/HCPCS: 36415; 82784; 83516; 86140; 86255

== ENCOUNTER → 2020-08-02 15:21 | Outpatient (CLI) | payer OTHER, SELFPAY ==
[2020-05-07 09:41] VITALS: BMI 32.4
--- NOTE | 2020-08-02 11:28 | COLBX_PTH ---
PATIENT: DIVYA PETTY LOC: [facility] U#:[id number] AGE/SX: 64/F ROOM: RE08/02/[address]: Dr. Stefano Menjivar MD : 1960 BED: DIS: SPEC #: [id number] RECD: 08/02/20 15:02 STATUS: ELIF BERNARDO #: [id number] OZZIE: 08/02/20 11:[address]: Stefano Menjivar DEPT: SURGICAL PATHOLOGY RECD BY: Radha Corcoran ENTERED: 08/05/20 08:24 SP TYPE: COLON BX OTHR DR: Dr. Anne-Marie Martínez MD [facility] Tissues: A - Ileum, NOS B - COLON BIOPSY C - COLON BIOPSY Procedures: Trichrome (control) Special Stain Group II Surgery Specimen Level IV HEADER OPERATION: Colonoscopy with biopsies PRE-OP DIAGNOSIS: Diarrhea, abdominal pain TISSUE SUBMITTED: A - Biopsy terminal ileum, rule out Crohn's, B - Right and left colon, rule out microscopic colitis, C - Biopsy polyp at 20 cm, rule out adenoma MICROSCOPIC DIAGNOSIS A. Terminal ileum, biopsy: No pathologic change. See comment. B. Right and left colon, biopsy: Collagenous colitis. See comment. C. Polyp at 20 cm, biopsy: Fragments of hyperplastic polyp. Lymphocytic colitis. AM:liliya 08/06/2020 COMMENT A. No evidence of Crohn's ileitis. B. Trichrome stain with matched control reveals focally thickened basal plate. Lymphocytes are increased in the mucosa. Clinical correlation is suggested. MICROSCOPIC DESCRIPTION Slides are reviewed. GROSS DESCRIPTION A - Received in fixative is one container labeled with the patient's name and designated biopsy terminal ileum. The specimen consists of multiple irregular fragments of light kan soft tissue that in aggregate measure 1 x 0.3 x 0.1 cm. The specimen is totally submitted in one cassette. B - Received in fixative is one container labeled with the patient's name and designated biopsy right and left colon. The specimen consists of multiple irregular fragments of light kan soft tissue that in aggregate measure 2 x 0.5 x 0.1 cm. The specimen is totally submitted in one cassette. C - Received in fixative is one container labeled with the patient's name and designated biopsy polyp at 20 cm. The specimen consists of two irregular fragments of light kan soft tissue that in aggregate measure 0.4 x 0.3 x 0.1 cm. The specimen is totally submitted in one cassette. / SJ:rg 08/05/20 TC:3 CPT: 99115 x3, 99002
== END ==
PROVIDERS: PCP Internal Medicine; Referring Provider Internal Medicine Gastroenterology; Visit Provider Internal Medicine Gastroenterology
DX: R19.7 Diarrhea, unspecified (principal); R10.9 Unspecified abdominal pain
CPT/HCPCS: 88305; 88313

== ENCOUNTER → 2020-09-25 14:02 | Outpatient (CLI) | payer OTHER, SELFPAY ==
[2020-09-25 13:41] VITALS: BMI 31.8
[2020-09-25 15:16] LABS: Anion Gap 6 (5-15); BUN 19 mg/dL (7-18); BUN/Creat Ratio 23.7 RATIO (10-20); Calcium,Total 9.1 mg/dL (8.5-10.1); Chloride 100 mmol/L (98-107); EST Glomerular Filtration Rate 78 mL/min (>60); Est Glom Filt Rate - Afr Amer 94 mL/min (>60); Glucose 131 mg/dL (74-106); Hemoglobin A1c 5.6 % (3.8-5.6); Sodium Level 138 mmol/L (136-145)
== END ==
PROVIDERS: PCP Internal Medicine; Referring Provider Internal Medicine; Visit Provider Internal Medicine
DX: R73.03 Prediabetes (principal); I10 Essential (primary) hypertension
CPT/HCPCS: 36415; 80048; 83036

== ENCOUNTER → 2020-10-08 14:04 | Outpatient (CLI) | payer OTHER, SELFPAY ==
[2020-05-07 09:41] VITALS: BMI 32.4
[2020-10-08 13:34] VITALS: BMI 29.7
--- NOTE | 2020-10-08 14:06 | CT_ITS ---
STUDY: LOW DOSE CT LUNG CANCER SCREENING REASON FOR EXAM: Female, 60 years old. Lung cancer screening. Patient smokes three-quarter packs per day for 43 years. RADIATION DOSAGE (If Supplied By Facility): CTDIvol = ( 3.02 ) mGy, DLP = ( 96.28 ) mGycm TECHNIQUE: No contrast was administered. Low dose technique was utilized (average mAS-38 and kVp 120). 1.25 mm axial source images with a slice interval of 1.25-mm were reconstructed in lung windows. 2.5 mm axial source images with a slice interval of 2.5-mm were reconstructed in lung windows. 5.0 mm axial source images with a slice interval of 5.0-mm were reconstructed in soft tissue windows. Nodule measured using lung windows on PACS and/or independent workstation with automated measurement of minimum and maximum diameter. Nodule measurement reported as average diameter rounded to the nearest whole number. Growth is defined as an increase ins size of greater than 1.5 mm. COMPARISON: Comparison is made with prior examination dated 09/26/2019. NODULES: No pulmonary nodules are seen. Emphysema: Mild degree of emphysematous changes. Endobronchial lesion: None Aorta: Atherosclerotic calcified plaques of the aortic arch. Coronary arteries: Coronary artery calcification. Mediastinal nodes: Stable small benign-appearing mediastinal lymph nodes. Other chest and abdominal findings: Degenerative changes of the thoracic spine. CT/Low Dose CT Lung Screening IMPRESSION: Lung-RADS category 2 - Continue annual screening with LDCT in 12 months. IMPORTANT NOTES FOR USE: ACR Lung-RADS Version 1.1 Assessment Categories Release Date: 2018 Category: Coded 0-4 bases on nodule(s) with highest degree of suspicion. Negative screen is defined as categories 1 and 2; a positive screen is defined as categories 3 and 4. Category 3 and 4A nodules that are unchanged on interval CT should be coded as category 2, and individuals returned to screening in 12 months. Category 4X: Category 3 or 4 nodules with additional imaging findings that increase the suspicion of lung cancer, such as spiculation, GGN that doubles in size in 1 year, enlarged lymph notes, etc. Category Modifiers: S (significant finding unrelated to lung cancer) Electronically Signed: Jack Shea MD at 14:49 EDT , Service support ,
== END ==
PROVIDERS: PCP Internal Medicine; Referring Provider Nurse Practitioner Family; Visit Provider Nurse Practitioner Family
DX: Z12.2 Encounter for screening for malignant neoplasm of respiratory organs (principal); Z87.891 Personal history of nicotine dependence
CPT/HCPCS: 71271

== ENCOUNTER → 2020-11-07 10:37 | Outpatient (CLI) | payer OTHER, SELFPAY ==
[2020-10-08 13:34] VITALS: BMI 29.7
== END ==
PROVIDERS: PCP Internal Medicine; Visit Provider Nurse Practitioner Family
DX: G47.10 Hypersomnia, unspecified (principal)
CPT/HCPCS: 95806

== ENCOUNTER → 2020-11-27 12:56 | Outpatient (CLI) | payer OTHER, SELFPAY ==
[2020-10-08 13:34] VITALS: BMI 29.7
== END ==
PROVIDERS: PCP Internal Medicine; Referring Provider Nurse Practitioner Family; Visit Provider Nurse Practitioner Family
DX: Z46.89 Encounter for fitting and adjustment of other specified devices (principal)

== ENCOUNTER → 2021-02-11 07:33 | Outpatient (CLI) | payer OTHER, SELFPAY ==
[2021-02-11 09:58] LABS: Absolute Lymphocyte Count 2.67 X10^3/uL (0.83-4.51); Basophil# 0.05 X10^3/uL; Basophil% 0.6 % (0-1); Eosinophils% 2.6 % (0-5); Hematocrit 41.4 % (37-47); Hemoglobin 13.7 g/dL (12.0-15.0); Lymphocyte # 2.67 X10^3/ul (0.83-4.51); Lymphocyte % 34.6 % (19-41); Mean Corp Hgb Conc 33.1 g/dL (32-36); Mean Corpuscular Hgb 33.3 pg (27.0-32.0); Mean Corpuscular Volume 100.7 fL (81-99); Mean Platelet Vol. 9.9 fl (6.2-12.0); Monocyte# 0.73 X10^3/uL; Monocyte% 9.5 % (0-10); NRBC Flagged by Analyzer 0 % (0-5); Neutrophil # 4.04 X10^3/uL (2.7-7.7); Neutrophil % 52.3 % (47-70); Platelet Count 297 K/mm3 (150-450); RBC Distribution Width CV 13.5 % (11.6-14.6); RBC Distribution Width SD 50.2 fl (35.1-43.9); Red Blood Count 4.11 M/mm3 (4.2-5.4); White Blood Count 7.7 K/mm3 (4.4-11.0)
[2021-02-11 10:17] LABS: ALB/GLOB Ratio 0.9 RATIO (0.9-2.4); AST(SGOT) 26 U/L (15-37); Alanine Aminotransfer ALT/SGPT 29 U/L (13-56); Albumin, Serum 3.3 g/dL (3.2-5.0); Alkaline Phosphatase 95 U/L (45-117); Anion Gap 7 (5-15); BUN 11 mg/dL (7-18); BUN/Creat Ratio 14.3 RATIO (10-20); Calcium,Total 9.2 mg/dL (8.5-10.1); Chloride 101 mmol/L (98-107); Cholesterol 222 mg/dL (200); Creatinine, Serum 0.77 mg/dL (0.55-1.02); EST Glomerular Filtration Rate 82 mL/min (>60); Est Glom Filt Rate - Afr Amer 99 mL/min (>60); Globulin 3.8 g/dL (2.2-4.2); Glucose 103 mg/dL (74-106); High Density Lipoprotein 69 mg/dL; Potassium 3.7 mmol/L (3.5-5.1); Protein, Total 7.1 g/dL (6.4-8.2); Sodium Level 138 mmol/L (136-145); Triglycerides 148 mg/dL; Very Low Density Lipoprotein 30 mg/dL (5-40)
== END ==
PROVIDERS: PCP Internal Medicine; Referring Provider Internal Medicine; Visit Provider Internal Medicine
DX: Z00.00 Encounter for general adult medical examination without abnormal findings (principal)
CPT/HCPCS: 36415; 80053; 80061; 85025

== ENCOUNTER → 2021-03-14 12:08 | Outpatient (CLI) | payer OTHER, SELFPAY ==
[2020-12-10 08:09] VITALS: BMI 29.7
--- NOTE | 2021-03-14 12:09 | BI_ITS ---
MAMMOGRAPHY - BILATERAL SCREENING REASON FOR EXAM: Female, 60 years old. Routine annual screening examination. PERTINENT HISTORY: Non-contributory. TECHNIQUE: Digital bilateral breast sofía (3D mammographic acquisition) in the CC and MLO projections. 2-D mediolateral oblique (MLO) and craniocaudad (CC) views of both breasts were obtained. CAD: Full Field Digital Mammography with Computer Added Detection was performed. COMPARISON: Comparison is made with prior examination 02/23/2020 and 06/14/2018. FINDINGS: Breast Composition: The breasts are heterogeneously dense, which may obscure small masses. There are no dominant masses or suspicious calcifications. No other significant abnormalities are identified. There has been no significant change since the prior study. BI/SCRN MAMM (CAD)W/SOFÍA BILAT IMPRESSION: Stable bilateral screening mammogram. Yearly follow-up mammogram recommended. (A) ASSESSMENT CATEGORY: BIRADS Category 1: Negative. A letter regarding these results will be sent to the patient by the facility within 30 days. Approximately 10% of breast cancers are not detected by mammography. A normal mammogram should not delay biopsy of a clinically suspicious abnormality. [id number] Electronically Signed: Jack Shea MD at 13:17 EST , Service support ,
== END ==
PROVIDERS: PCP Internal Medicine; Referring Provider Internal Medicine; Visit Provider Internal Medicine
DX: Z12.31 Encounter for screening mammogram for malignant neoplasm of breast (principal)
CPT/HCPCS: 77063; 77067

== ENCOUNTER 2021-05-15 09:34 | Outpatient (CLI) | payer OTHER, SELFPAY ==
[2021-05-15 12:35] LABS: Anion Gap 7 (5-15); BUN 15 mg/dL (7-18); BUN/Creat Ratio 17.6 RATIO (10-20); Calcium,Total 9.5 mg/dL (8.5-10.1); Chloride 100 mmol/L (98-107); Creatinine, Serum 0.85 mg/dL (0.55-1.02); EST Glomerular Filtration Rate 72 mL/min (>60); Est Glom Filt Rate - Afr Amer 88 mL/min (>60); Glucose 86 mg/dL (74-106); Sodium Level 138 mmol/L (136-145); Thyroid Stim Hormone (TSH) 1.29 uIU/mL (0.358-3.74)
== END 2021-05-15 23:59 | disposition short-term general hospital (02) ==
LOC: BIMLAB 09:35
PROVIDERS: PCP Internal Medicine; Referring Provider Nurse Practitioner Family; Visit Provider Nurse Practitioner Family
DX: L65.9 Nonscarring hair loss, unspecified (principal)
CPT/HCPCS: 36415; 80048; 84443

== ENCOUNTER 2021-10-13 13:56 | Emergency (ER) | payer OTHER, SELFPAY ==
[2021-10-13 13:57] VITALS: BP 193/91; PULSE 94; RESP 18; TEMP 36.7; O2SAT 98; BMI 34.6
[2021-10-13 14:07] VITALS: BP 105/75; BP 146/106; BP 176/91; PULSE 77; PULSE 82; PULSE 88
[2021-10-13 14:13] VITALS: BP 146/106; PULSE 83; RESP 17
--- NOTE | 2021-10-13 14:23 | RAD_ITS ---
STUDY: X-RAY CHEST REASON FOR EXAM: Female, 61 years old. Chest pain TECHNIQUE: Single AP portable view of the chest. COMPARISON: None. FINDINGS: EKG electrodes are seen. The lungs are clear and expanded. There is no demonstrated pleural abnormality. Normal size heart. Normal mediastinum and jett. Normal visualized pulmonary arteries. There is atherosclerotic calcification of the aortic arch with tortuosity. Normal visualized thoracic spine. Normal visualized ribs, clavicles, and shoulders. There is no demonstrated abnormality of the visualized soft tissue structures of the upper abdomen. RAD/Chest 1 View (Portable) IMPRESSION: No acute abnormality is seen. Electronically Signed: Jack Shea MD at 15:13 EDT ,
--- NOTE | 2021-10-13 14:23 | EKG12_ITS ---
Test Reason : DIZZY Blood Pressure : / mmHG Vent. Rate : 072 BPM Atrial Rate : 072 BPM P-R Int : 152 ms QRS Dur : 084 ms QT Int : 422 ms P-R-T Axes : 070 065 053 degrees QTc Int : 462 ms Normal sinus rhythm Normal ECG Confirmed by TERRI VALDEZ, DICKSON ([id number]), editor index DUSTIN JOHNSON ([id number]) on 10/15/2021 9:57:54 AM Referred By: CHERI Confirmed By:DICKSON MURRAY MD
--- NOTE | 2021-10-13 14:24 | EDS_ITS ---
HPI History of Present Illness Chief Complaint: Dizziness Informant: patient Onset/Context/Timing Onset: Hours Activity at onset: sudden and exertion (States she was throwing mulch. She had been throwing months for 20 minutes prior to onset of chest discomfort and lightheadedness.) Timing: Intermittent (Today's episode lasted seconds. Please read narrative portion of chart) Quality: Positive for Aching Location: Left Parasternal Current Severity: Gone Maximum Severity: Moderate Worsened By: - (Patient stopped when she had the chest discomfort and became lightheaded and sat down.) Relieved By: Rest Associated Symptoms: Negative for Nausea, Diaphoresis, Dyspnea, Cough, Fever, Lightheadedness, Acid Reflux and Palpitations Narrative Narrative: Patient is a 61-year-old woman with history of hypertension who was a smoker since the age of 17 until March 2021. She presents today because she became lightheaded and had chest discomfort above and below her left breast that lasted seconds. What concerned her today was the fact that she got lightheaded. She was throwing mulch for approximate 20 minutes prior to the onset of symptoms. Patient states over the past 1 to 2 months she does get short of breath and chest discomfort going up and down the steps. She is also had other episodes of chest discomfort that has been related to activity or exertion. She does not recall how long those episodes lasted for. She does recall that the shortness of breath lasted longer than the chest discomfort. Her symptoms would resolve with rest. She does have history of hiatal hernia. She states this discomfort is different than the discomfort she experiences with hiatal hernia. She denies black or maroon-colored stool. She denies change in consistency, color or caliber of her stool. Father had IA in his 40s. Mother had triple bypass surgery in her early 60s. Prior Similar Symptoms: Yes (Did not seek medical attention) CVD Risk Factors: Positive for Hypertension, Family History 1' </=55 and Smoking PE Risk Factors: Negative for Recent Travel/Surgery, Recent Immobilization, Prior DVT or PE, Cancer and OCP + Smoking + >/=35 TAD Risk Factors: Positive for Hypertension; Negative for Marfan's Syndrome and Family History [facility] Medical History Abnormal Pap smear of cervix Arthritis Back problem Cataracts, bilateral Chronic lumbar radiculopathy Colitis Degenerative disc disease, lumbar Diverticulitis Encounter for screening for malignant neoplasm of lung in current smoker with 30 pack year history or greater Hypersomnia Hypertension Indigestion COLBY (obstructive sleep apnea) Preventative health care Tobacco abuse Tobacco use disorder, continuous Home Medications albuterol sulfate 90 mcg/actuation aerosol inhaler 1 puff INHALATION Q6H PRN #8.5 g 09/20/20 [Rx Last Taken Unknown] hydrochlorothiazide 25 mg tablet 25 mg PO DAILY #90 tab 02/28/21 [Rx Last Taken Unknown] vit H47-nijhbqbyh factor-folic acid cmb#2 500 mcg-20 mg-800 mcg tablet tab PO 03/11/21 [History Last Taken Unknown] multivitamin 1 tab PO DAILY 04/09/21 [History Last Taken Unknown] omeprazole 20 mg capsule,delayed release 20 mg PO DAILY 04/09/21 [History Last Taken Unknown] potassium chloride 20 mEq tablet,extended release 20 meq PO DAILY #90 tab 07/29/21 [Rx Last Taken Unknown] cyclobenzaprine 10 mg tablet 5 - 10 mg PO TID PRN #30 tab 08/19/21 [Rx Last Taken Unknown] meloxicam 15 mg tablet 15 mg PO DAILY PRN #30 tab 08/19/21 [Rx Last Taken Unknown] prednisone 10 mg tablet See Rx Instructions PO QDAY #30 tab 08/19/21 [Rx Last Taken Unknown] Allergy/AdvReac Type Severity Reaction Status Date / Time No Known Allergies Allergy Verified 10/13/21 13:56 Family History Mother Diabetes Heart disease Arthritis Hypertension CVA (cerebral vascular accident) Diabetes type 2, controlled Father Heart disease Myocardial infarction, Onset Age: 40 Hyperlipidemia Diabetes type 2, controlled Brother Diabetes Hypertension Surgical History caudal epidural H/O colonoscopy H/O LEEP (~2006) H/O vein stripping Social History Smoking Status: Former smoker quit date: 03/03/21 Tobacco: How many years used: 42 Electronic Cigarette Use: not used second hand exposure: No quit status: has quit before counseling given: provider counseling alcohol intake: current alcohol intake frequency: a few times a week substance use type: does not use caffeine: Yes what type of physical activity do you participate in: none and walking frequency: 1-2 times per week duration: 45-60 minutes/day seatbelt use: always do you feel safe at home: Yes additional social history: . Employed: [employer] ED Constitutional Constitutional ED: Denies chills, fever(s), subjective, sweats or weight loss Eyes Eyes: Reports none ENT ENT ED: Denies ear pain, rhinorrhea or sore throat Cardiovascular Cardiovascular: Reports as per HPI; Denies orthopnea or paroxysmal nocturnal dyspnea Respiratory/Chest Respiratory/Chest: Reports dyspnea and dyspnea on exertion; Denies cough, orthopnea or paroxysmal nocturnal dyspnea Gastrointestinal Gastrointestinal: Denies abdominal pain, diarrhea, nausea or vomiting Musculoskeletal Musculoskeletal: Denies arthralgias, back pain, myalgias or neck pain Integumentary Denies rash Neurologic Neurologic: Denies paresthesias or weakness Endocrine Endocrinology: Denies polydipsia, polyphagia or polyuria EXAM Physical Exam Const Vital Signs: 10/13/21 13:57 10/13/21 14:05 10/13/21 14:07 Temperature 98.1 F Temperature Source Temporal Pulse Rate 94 Pulse Rate [Lying] 77 Pulse Rate [Sitting (for 1 minute prior to obtaining)] 82 Pulse Rate [Standing (for 1 minute prior to obtaining)] 88 Respiratory Rate 18 Respiratory Effort Normal Respiratory Pattern Normal Blood Pressure 193/91 H Blood Pressure [Lying] 105/75 Blood Pressure [Sitting (for 1 minute prior to obtaining)] 176/91 H Blood Pressure [Standing (for 1 minute prior to obtaining)] 146/106 H Blood Pressure Mean 125 Blood Pressure Mean [Lying] 85 Blood Pressure Mean [Sitting (for 1 minute prior to obtaining)] 119 Blood Pressure Mean [Standing (for 1 minute prior to obtaining)] 119 Pulse Ox 98 Oxygen Delivery Method Room Air 10/13/21 14:13 10/13/21 14:30 Temperature Temperature Source Pulse Rate 83 Pulse Rate [Lying] Pulse Rate [Sitting (for 1 minute prior to obtaining)] Pulse Rate [Standing (for 1 minute prior to obtaining)] Respiratory Rate 17 Respiratory Effort Respiratory Pattern Blood Pressure 146/106 H Blood Pressure [Lying] Blood Pressure [Sitting (for 1 minute prior to obtaining)] Blood Pressure [Standing (for 1 minute prior to obtaining)] Blood Pressure Mean 119 Blood Pressure Mean [Lying] Blood Pressure Mean [Sitting (for 1 minute prior to obtaining)] Blood Pressure Mean [Standing (for 1 minute prior to obtaining)] Pulse Ox 97 Oxygen Delivery Method Room Air Positive well nourished, well developed and obese General Appearance ED: well developed and NAD; Negative for pallor Nutritional Appearance: obese HEENT Reports moist mucous membranes HEENT Narrative: Ears normal. Nares patent. normocephalic and atraumatic Eyes PERRL and EOMs intact bilaterally General Eye ED: Negative for pale conjunctiva or scleral icterus Neck no lymphadenopathy, supple and no JVD Chest Wall inspection of chest normal and palpation of chest normal Resp normal respiratory effort and clear to auscultation bilaterally Effort and Inspection: respiratory distress Cardio regular rate, regular rhythm, S1 normal heart sound, S2 normal heart sound and no murmurs GI normal to inspection, nondistended, normoactive bowel sounds, soft to palpation and non-tender; Negative for hepatosplenomegaly Back/Spine no CVA tenderness Extremity normal to inspection Extremity Narrative: There is no asymmetry, swelling, discoloration, leg vein distention, palpable cords or tenderness along the distribution of the deep venous system. General Extremety ED: Negative for edema, pulses abnormal or tenderness General Extremity: Negative for edema or pulses abnormal Neuro oriented x3, CN's II-XII intact bilaterally and no sensory deficits noted Sensorium / Orientation: awake and alert Motor Exam: strength 5/5 throughout Psych mental status grossly normal Skin no rashes or lesions noted and no wounds General Skin Exam: Negative for jaundice or pallor Heart Score History: Moderately Suspicious Age: >45 - <65 years Risk Factors: >/= 3 Risk Factors or History of CAD Score: 4 MDM MDM MDM Narrative Medical decision making narrative: Today's presentation is very atypical; however, her symptoms over the past 1 to 2 months are concerning for exertional angina. She states she had a stress test 5 years ago. She does not recall the exact reason she had the stress test. She does recall that it was interpreted as negative. She does not believe she could do a treadmill test at this time because she has arthritis in her lower extremities. Presentation that prompted her to come in today is more consistent with orthostatic symptoms. Will initiate a cardiac work-up and determine if patient requires observation for emergent stress test versus outpatient stress test. Will discuss with ca rdiology once laboratory results are available. Case was discussed with Dr. Otis Nix. Since patient has a normal troponin plan is outpatient stress test especially since her heart score is 4 and her symptoms over the past 1 to 2 months are concerning for exertional angina. There is no evidence of IA. Patient's symptoms have not returned. She has moved her head about with no return of symptoms. She will be discharged home with appropriate home-going structures. Lab Data Attestation: I reviewed the patient's lab results. Lab results narrative: With a troponin of 3 patient was informed that the likelihood of her symptoms today is not cardiac. Of note when I went in to explain her results and plan she complained of dizziness. Now she is complaining of the room spinning and it is positional and paroxysmal. The eye askew test was negative. The hint test was negative. Strong-Hallpike ma neuver was positive. Modified Rea maneuver was performed with initial symptoms that resolved quickly. Will reassess in 5 minutes. Labs: Laboratory Results - last 24 hr 10/13/21 10/13/21 14:25 14:25 WBC 10.1 RBC 4.02 L Hgb 13.0 Hct 38.7 MCV 96.3 MCH 32.3 H MCHC 33.6 RDW Std Deviation 49.2 H RDW Coeff of Jere 13.8 Plt Count 265 MPV 9.8 Immature Gran % (Auto) 0.700 Neut % (Auto) 48.2 Lymph % (Auto) 36.3 Flathead % (Auto) 9.6 Eos % (Auto) 4.8 Baso % (Auto) 0.4 Absolute Neuts (auto) 4.9 Absolute Lymphs (auto) 3.68 Nucleated RBC % 0 Sodium 137 Potassium 3.4 L Chloride 102 Carbon Dioxide 28.0 Anion Gap 7 BUN 12 Creatinine 0.86 Estim Creat Clear Calc 57.55 Est GFR (MDRD) Af Amer 87 Est GFR (MDRD) Non-Af 72 BUN/Creatinine Ratio 14.0 Glucose 94 Calcium 9.3 Troponin I High Sens 3 Radiography Chest X-Ray - ED: 1 View (Single view portable chest x-ray is independently reviewed and interpreted by me at 1459 as normal. The cardiac silhouette and size normal. Perihilar region normal. Lung parenchyma normal. Osseous structures normal.), Read by ED Physician, Normal, Heart, Lungs, Mediastinum, Bony Structures and No Acute Disease Diagnostic Testing: Clinical Impression(s) from Imaging Studies Chest X-Ray 10/13/21 14:23 IMPRESSION: No acute abnormality is seen. Electronically Signed: Jack Shea MD at 15:13 EDT , Discharge Plan Triage Chief Complaint: Dizziness ED Provider: Patrick Avery Dx/Rx/DC Orders Clinical Impression: Left-sided chest pain, Benign paroxysmal positional vertigo, Dyspnea on exertion Instructions: ED BPV Vertigo, ED Chest Pain, Uncertain Cause Prescriptions: No Action Intrinsi [id number] 500-20-800 mcg-mg-mcg tablet PO RF: 0 omeprazole 20 mg capsule,delayed release(DR/EC) 20 mg PO DAILY RF: 0 multivitamin Tablet 1 tab PO DAILY RF: 0 cyclobenzaprine 10 mg tablet 5 - 10 mg PO TID PRN (Reason: muscle spasm) Qty: 30 RF: 0 prednisone 10 mg tablet See Rx Instructions PO QDAY Qty: 30 RF: 0 meloxicam 15 mg tablet 15 mg PO DAILY PRN (Reason: osteoarthritis) Qty: 30 RF: 1 albuterol sulfate 90 mcg/actuation HFA aerosol inhaler 1 puff INHALATION Q6H PRN (Reason: shortness of breath or wheezing) Qty: 8.5 RF: 2 hydrochlorothiazide 25 mg tablet 25 mg PO DAILY Qty: 90 RF: 3 potassium chloride 20 mEq tablet extended release 20 meq PO DAILY Qty: 90 RF: 1 Primary Care Provider: Anne-Marie Martínez Referrals: Otis Nix MD [STAFF PHYSICIAN] - Keep Chai appointment Anne-Marie Martínez MD [Primary Care Provider] - Activity Restrictions/Additional Instructions: Dr. Nix will have someone from his office staff call you with the date and time of your outpatient stress test Disposition Disposition: Home, Self Care
[2021-10-13 14:30] VITALS: O2SAT 97
[2021-10-13 14:33] LABS: Absolute Lymphocyte Count 3.68 X10^3/uL (0.83-4.51); Absolute Neutrophil Count 4.9 X10^3/uL (2.0-7.7); Basophil# 0.04 X10^3/uL; Basophil% 0.4 % (0-1); Eosinophil# 0.49 X10^3/uL; Eosinophils% 4.8 % (0-5); Hematocrit 38.7 % (37-47); Lymphocyte # 3.68 X10^3/ul (0.83-4.51); Lymphocyte % 36.3 % (19-41); Mean Corp Hgb Conc 33.6 g/dL (32-36); Mean Corpuscular Hgb 32.3 pg (27.0-32.0); Mean Corpuscular Volume 96.3 fL (81-99); Mean Platelet Vol. 9.8 fl (6.2-12.0); Monocyte# 0.97 X10^3/uL; Monocyte% 9.6 % (0-10); NRBC Flagged by Analyzer 0 % (0-5); Neutrophil # 4.89 X10^3/uL (2.7-7.7); Neutrophil % 48.2 % (47-70); Platelet Count 265 K/mm3 (150-450); RBC Distribution Width CV 13.8 % (11.6-14.6); RBC Distribution Width SD 49.2 fl (35.1-43.9); Red Blood Count 4.02 M/mm3 (4.2-5.4); White Blood Count 10.1 K/mm3 (4.4-11.0)
[2021-10-13] MEDS: Aspirin 81 MG TAB.CHEW 324 MG PO (14:43)
[2021-10-13] MEDS: 0.9% Normal Saline 1,000 ML 1000 ML IV (14:43)
[2021-10-13 14:51] LABS: Anion Gap 7 (5-15); BUN 12 mg/dL (7-18); Calcium,Total 9.3 mg/dL (8.5-10.1); Chloride 102 mmol/L (98-107); Creatinine, Serum 0.86 mg/dL (0.55-1.02); EST Glomerular Filtration Rate 72 mL/min (>60); Est Glom Filt Rate - Afr Amer 87 mL/min (>60); Estimated Creatinine Clearance 57.55 ml/min; Glucose 94 mg/dL (74-106); Potassium 3.4 mmol/L (3.5-5.1); Sodium Level 137 mmol/L (136-145); Troponin-I HS (w/2H Reflex) 3 pg/mL (3.0-54.0)
[2021-10-13 15:00] VITALS: BP 135/80; PULSE 71; RESP 17; O2SAT 94
[2021-10-13 15:35] VITALS: BP 172/100; PULSE 67
[2021-10-13 16:30] LABS: Reflex Troponin-HS? (from REC) Y
== END 2021-10-13 15:41 | disposition home or self-care (01) ==
PROVIDERS: Emergency Provider Emergency Medicine; PCP Internal Medicine; Visit Provider Emergency Medicine
DX: R07.9 Chest pain, unspecified (principal); R06.02 Shortness of breath; Z87.891 Personal history of nicotine dependence; M19.90 Unspecified osteoarthritis, unspecified site; R00.2 Palpitations; I10 Essential (primary) hypertension; R06.00 Dyspnea, unspecified; H81.10 Benign paroxysmal vertigo, unspecified ear
CPT/HCPCS: 71045; 80048; 84484; 85025; 93005; 96360; 99285; A4216

== ENCOUNTER → 2021-11-05 | Outpatient (CLI) | payer OTHER, SELFPAY ==
--- NOTE | 2021-11-05 13:37 | RAD_ITS ---
EXAM: XR CHEST, 2 VIEWS CLINICAL INDICATION: SOB TECHNIQUE: Frontal and lateral views of the chest. This report was created using [employer] report generation technology. COMPARISON: XR Chest dated 10/13/2021 FINDINGS: LUNGS AND PLEURAL SPACES: Unremarkable. No consolidation or edema. No pneumothorax. No effusion. HEART: Unremarkable. Normal heart size. MEDIASTINUM: Central airways and mediastinal contour are unremarkable. BONES/JOINTS: Unremarkable. SOFT TISSUES: Unremarkable. RAD/Chest PA and Lateral IMPRESSION: No acute cardiopulmonary abnormality. No interval change. Electronically Signed: David Mahan MD at 9:51 EDT ,
--- NOTE | 2021-11-05 13:37 | RAD_ITS ---
EXAM: XR SOFT TISSUE NECK CLINICAL INDICATION: NECK SWELLING TECHNIQUE: Frontal and lateral views of the soft tissues of the neck. This report was created using [employer] report generation technology. COMPARISON: XR Neck dated 03/27/2016 FINDINGS: AIRWAY: Unremarkable. Grossly patent. BONES/JOINTS: Loss of the normal lordosis suggestive of muscle spasm. Disc space narrowing and vertebral body spurring at C5-6 and C6-7 again noted. SOFT TISSUES: Unremarkable. No radiopaque foreign body. No pathologic thickening or enlargement of the epiglottis. RAD/Neck for Soft Tissue IMPRESSION: No acute abnormality. C5-6 and C6-7 spondylosis. Electronically Signed: David Mahan MD at 9:56 EDT ,
[2021-11-05 15:12] LABS: Erythrocyte Sedimentation Rate 20 mm/hr (0-30)
[2021-11-05 15:14] LABS: Absolute Lymphocyte Count 3.32 X10^3/uL (0.83-4.51); Absolute Neutrophil Count 5.3 X10^3/uL (2.0-7.7); Basophil# 0.05 X10^3/uL; Basophil% 0.5 % (0-1); Eosinophils% 3.1 % (0-5); Hematocrit 41.1 % (37-47); Hemoglobin 13.4 g/dL (12.0-15.0); Lymphocyte # 3.32 X10^3/ul (0.83-4.51); Lymphocyte % 33.9 % (19-41); Mean Corp Hgb Conc 32.6 g/dL (32-36); Mean Corpuscular Hgb 32.1 pg (27.0-32.0); Mean Corpuscular Volume 98.3 fL (81-99); Mean Platelet Vol. 10.6 fl (6.2-12.0); Monocyte# 0.82 X10^3/uL; Monocyte% 8.4 % (0-10); NRBC Flagged by Analyzer 0 % (0-5); Neutrophil # 5.26 X10^3/uL (2.7-7.7); Neutrophil % 53.7 % (47-70); Platelet Count 311 K/mm3 (150-450); RBC Distribution Width CV 14.2 % (11.6-14.6); RBC Distribution Width SD 51.7 fl (35.1-43.9); Red Blood Count 4.18 M/mm3 (4.2-5.4); White Blood Count 9.8 K/mm3 (4.4-11.0)
[2021-11-05 15:53] LABS: AST(SGOT) 26 U/L (15-37); Alanine Aminotransfer ALT/SGPT 39 U/L (13-56); Albumin, Serum 3.9 g/dL (3.2-5.0); Alkaline Phosphatase 99 U/L (45-117); Anion Gap 8 (5-15); BUN 16 mg/dL (7-18); BUN/Creat Ratio 18.1 RATIO (10-20); Calcium,Total 9.7 mg/dL (8.5-10.1); Chloride 102 mmol/L (98-107); Creatinine, Serum 0.88 mg/dL (0.55-1.02); EST Glomerular Filtration Rate 69 mL/min (>60); Est Glom Filt Rate - Afr Amer 84 mL/min (>60); Globulin 3.9 g/dL (2.2-4.2); Glucose 95 mg/dL (74-106); Potassium 3.6 mmol/L (3.5-5.1); Protein, Total 7.8 g/dL (6.4-8.2); Sodium Level 136 mmol/L (136-145); Thyroid Stim Hormone (TSH) 2.02 uIU/mL (0.358-3.74)
== END | disposition home or self-care (01) ==
LOC: MTLAB 13:34
PROVIDERS: PCP Internal Medicine; Referring Provider Family Medicine; Visit Provider Family Medicine
DX: R06.02 Shortness of breath (principal); R22.1 Localized swelling, mass and lump, neck
CPT/HCPCS: 36415; 70360; 71046; 80053; 84443; 85025; 85652; 86140

== ENCOUNTER → 2021-11-10 | Outpatient (CLI) | payer OTHER, SELFPAY ==
--- NOTE | 2021-11-10 18:24 | STRESSREP ---
Stress Test Report Exercise myocardial perfusion stress test. 61-year-old lady with a history of chest pain. Stress protocol: Resting KG demonstrates normal sinus rhythm with a rate of 58 bpm normal intervals are noted resting blood pressure is 148/82 mmHg. The patient exercised according to the regular Phillip protocol for a total duration of 5 minutes and 30 seconds. The maximum heart rate attained was 142 bpm which was 88% of max impacted heart rate the maximum workload was 7 metabolic equivalents. At rest there were no ST or T wave changes noted suggest ischemia and at peak exercise upsloping ST changes swelling were noted which did not meet the criteria for ischemia. No clinical angina was noted the test was terminated due to target heart rate being achieved. The peak blood pressure was 182/62 mmHg. Myocardial perfusion protocol. 11.8 mCi of technetium 99m sestamibi was injected at rest. The patient then exercised according to a regular Phillip protocol for 5-1/2 minutes and at peak exercise 34.7 mCi of technetium 99m sestamibi was injected stress images were obtained stress and rest images were reconstructed in comparing the short axis vertical long and horizontal long axis. Gated images were also obtained. Perfusion SPECT analysis: Review of the stress images demonstrate normal uptake of tracer noted in all areas of the myocardium. The resting images similarly demonstrate normal uptake of tracer noted in all areas of the myocardium. No reversibility is noted to suggest ischemia no previous infarct is noted. Gated SPECT analysis: The gated ejection fraction is 66%. Conclusion: Normal exercise myocardial perfusion stress test at a moderate workload. Preserved ejection fraction
== END | disposition home or self-care (01) ==
LOC: CVS 06:19
PROVIDERS: PCP Internal Medicine; Referring Provider Internal Medicine Cardiovascular Disease; Visit Provider Internal Medicine Cardiovascular Disease
DX: G47.33 Obstructive sleep apnea (adult) (pediatric) (principal); Z72.0 Tobacco use; I10 Essential (primary) hypertension
CPT/HCPCS: 78452; 93017; A9500; A4216

== ENCOUNTER → 2021-11-25 | Outpatient (CLI) | payer OTHER, SELFPAY ==
--- NOTE | 2021-11-25 12:36 | CT_ITS ---
STUDY: LOW DOSE CT LUNG CANCER SCREENING REASON FOR EXAM: Female, 61 years old. Lung cancer screening -- 43 pk yr hx;asymptomatic; former smoker RADIATION DOSAGE (If Supplied By Facility): CTDIvol = ( 3.02 ) mGy, DLP = ( 100.05 ) mGycm TECHNIQUE: No contrast was administered. Low dose technique was utilized (average mAS-38 and kVp 120). 1.25 mm axial source images with a slice interval of 1.25-mm were reconstructed in lung windows. 2.5 mm axial source images with a slice interval of 2.5-mm were reconstructed in lung windows. 5.0 mm axial source images with a slice interval of 5.0-mm were reconstructed in soft tissue windows. COMPARISON: Comparison is made with prior study dated 10/08/2020. NODULES: No suspicious nodules are seen. Emphysema: Mild degree of emphysematous changes. Endobronchial lesion: None Aorta: Atherosclerotic calcified plaques of the aortic arch. CORONARY ARTERIES: Coronary artery calcification is seen. Heart: Unremarkable Pulmonary artery: Unremarkable Mediastinal nodes: Small benign-appearing mediastinal lymph nodes. Other chest and abdominal findings: CT/Low Dose CT Lung Screening IMPRESSION: Lung-RADS category 1 - Continue annual screening with LDCT in 12 months. IMPORTANT NOTES FOR USE: ACR Lung-RADS Version 1.1 Assessment Categories Release Date: 2018 Category: Coded 0-4 bases on nodule(s) with highest degree of suspicion. Negative screen is defined as categories 1 and 2; a positive screen is defined as categories 3 and 4. Category 3 and 4A nodules that are unchanged on interval CT should be coded as category 2, and individuals returned to screening in 12 months. Category 4X: Category 3 or 4 nodules with additional imaging findings that increase the suspicion of lung cancer, such as spiculation, GGN that doubles in size in 1 year, enlarged lymph notes, etc. Category Modifiers: S (significant finding unrelated to lung cancer) Electronically Signed: Jack Shea MD at 13:34 EDT ,
== END | disposition home or self-care (01) ==
LOC: CT 12:35
PROVIDERS: PCP Internal Medicine; Referring Provider Nurse Practitioner Family; Visit Provider Nurse Practitioner Family
DX: Z12.2 Encounter for screening for malignant neoplasm of respiratory organs (principal); Z87.891 Personal history of nicotine dependence
CPT/HCPCS: 71271

== ENCOUNTER → 2021-12-12 | Outpatient (CLI) | payer OTHER, SELFPAY ==
[2021-12-12 15:57] LABS: Erythrocyte Sedimentation Rate 21 mm/hr (0-30)
[2021-12-12 16:29] LABS: Rheumatoid Factor < 10.0 IU/mL (<15)
[2021-12-16 08:47] LABS: CCP IgG Antibodies 6 units (0-19)
[2021-12-16 09:11] LABS: ANTINUCLEAR ANTIBODIES DIRECT Negative (Negative)
== END | disposition home or self-care (01) ==
LOC: BIMLAB 13:56
PROVIDERS: PCP Internal Medicine; Referring Provider Nurse Practitioner Family; Visit Provider Nurse Practitioner Family
DX: M25.50 Pain in unspecified joint (principal)
CPT/HCPCS: 36415; 85652; 86038; 86140; 86200; 86225; 86235; 86431

== ENCOUNTER → 2021-12-18 | Outpatient (CLI) | payer OTHER, SELFPAY ==
--- NOTE | 2021-12-18 12:21 | US_ITS ---
STUDY: SUPERFICIAL ULTRASOUND - SUPRACLAVICULAR REGIONS. REASON FOR EXAM: Female, 61 years old. Supraclavicular lymphadenopathy TECHNIQUE: A superficial ultrasound was performed with real-time and static castro-scale imaging. COMPARISON: None. FINDINGS: Imaging of both supraclavicular regions was obtained. No sonographic abnormality is seen. US/Head/Neck Soft Tissue IMPRESSION: No sonographic abnormality is seen. Electronically Signed: aJck Shea MD at 15:02 EDT ,
== END | disposition home or self-care (01) ==
LOC: US 12:21
PROVIDERS: PCP Internal Medicine; Referring Provider Nurse Practitioner Family; Visit Provider Nurse Practitioner Family
DX: R59.0 Localized enlarged lymph nodes (principal)
CPT/HCPCS: 76536

== ENCOUNTER → 2022-01-27 | Outpatient (CLI) | payer OTHER, SELFPAY ==
[2022-01-27 12:30] LABS: Cholesterol 220 mg/dL (200); High Density Lipoprotein 75 mg/dL; Triglycerides 109 mg/dL; Very Low Density Lipoprotein 22 mg/dL (5-40)
[2022-01-30 13:22] LABS: Anion Gap 10 (5-15); BUN 18 mg/dL (7-18); BUN/Creat Ratio 21.6 RATIO (10-20); Calcium,Total 9.6 mg/dL (8.5-10.1); Chloride 103 mmol/L (98-107); Creatinine, Serum 0.83 mg/dL (0.55-1.02); EST Glomerular Filtration Rate 74 mL/min (>60); Est Glom Filt Rate - Afr Amer 90 mL/min (>60); Glucose 105 mg/dL (74-106); Potassium 4.1 mmol/L (3.5-5.1); Sodium Level 139 mmol/L (136-145)
== END | disposition home or self-care (01) ==
LOC: BIMLAB 09:05
PROVIDERS: PCP Internal Medicine; Referring Provider Internal Medicine; Visit Provider Internal Medicine
DX: Z00.00 Encounter for general adult medical examination without abnormal findings (principal); R73.03 Prediabetes; M13.0 Polyarthritis, unspecified
CPT/HCPCS: 36415; 80048; 80061; 83036

== ENCOUNTER → 2022-03-18 | Outpatient (CLI) | payer OTHER, SELFPAY ==
--- NOTE | 2022-03-18 11:00 | BI_ITS ---
MAMMOGRAPHY - BILATERAL SCREENING REASON FOR EXAM: Female, 61 years old. Routine annual screening examination. PERTINENT HISTORY: Non-contributory. TECHNIQUE: Digital bilateral breast sofía (3D mammographic acquisition) in the CC and MLO projections. 2-D mediolateral oblique (MLO) and craniocaudad (CC) views of both breasts were obtained. CAD: Full Field Digital Mammography with Computer Added Detection was performed. COMPARISON: Comparison is made with prior study dated 03/14/2021 and 02/23/2020. FINDINGS: Breast Composition: The breasts are heterogeneously dense, which may obscure small masses. There are no dominant masses or suspicious calcifications. Stable benign appearing bilateral axillary lymph nodes. No other significant abnormalities are identified. There has been no significant change since the prior study. BI/SCRN MAMM (CAD)W/SOFÍA BILAT IMPRESSION: Stable bilateral screening mammogram. Yearly follow-up mammogram recommended. (A) ASSESSMENT CATEGORY: BIRADS Category 2: Benign. A letter regarding these results will be sent to the patient by the facility within 30 days. Approximately 10% of breast cancers are not detected by mammography. A normal mammogram should not delay biopsy of a clinically suspicious abnormality. [id number] Electronically Signed: Jack Shea MD at 13:06 EST ,
--- NOTE | 2022-03-18 11:05 | BD_ITS ---
STUDY: DUAL ENERGY X-RAY ABSORPTIOMETRY / DXA REASON FOR EXAM: Female, 61 years old. Post - Menopausal TECHNIQUE: Bone Mineral Density (BMD) measurements of lumbar spine and bilateral hips were obtained. COMPARISON: None. FINDINGS: Lumbar Spine (L1-L4): g/cm2 (0.923) / T-score (-0.8) / Z-score (0.6) Findings are suggestive of normal bone density with a low fracture risk. Left Femur Total: g/cm2 (0.885) / T-score (-0.5) / Z-score (0.5) Left Femoral Neck: g/cm2 (0.787) / T-score (-0.6) / Z-score (0.8) Right Femur Total: g/cm2 (0.866) / T-score (-0.6) / Z-score (0.4) Right Femoral Neck: g/cm2 (0.776) / T-score (-0.7) / Z-score (0.7) BD/Dexa Bone Density Study IMPRESSION: The patient is considered normal as outlined below according to World [employer] Organization (WHO) criteria with a low fracture risk. Reference Information: The T-score is the number of standard deviations above or below the standard which is normal for young adults at their peak bone mineral density. The World Health Organization (WHO) interprets the T-scores as follows: Above -1 Normal bone density Between -1 and -2.5 Osteopenia Equal to / or below -2.5 Osteoporosis As a practical clinical guideline, osteopenia may be graded as follows: Mild -1 through -1.5 Moderate -1.6 through -2.0 Severe -2.1 through -2.4 The Z-score is the number of standard deviations above or below age-matched controls. A Z-score of less than -1.5 would be considered abnormal. References: 1. NIH Osteoporosis and Related Bone Diseases www osteo.org 2. International Society for Clinical Densitometry www iscd.org 3. National Osteoporosis Foundation www nof.org Electronically Signed: Jack Shea MD at 11:01 EST ,
== END | disposition home or self-care (01) ==
LOC: OPBI 10:59
PROVIDERS: PCP Internal Medicine; Visit Provider Internal Medicine
DX: Z12.31 Encounter for screening mammogram for malignant neoplasm of breast (principal); Z78.0 Asymptomatic menopausal state
CPT/HCPCS: 77063; 77067; 77080

== ENCOUNTER 2022-04-23 16:01 | Emergency (ER) | payer OTHER, SELFPAY ==
[2022-04-23 16:03] VITALS: BP 155/82; PULSE 68; RESP 18; TEMP 36.6; O2SAT 96; BMI 28.3
--- NOTE | 2022-04-23 16:27 | EX.ED.DYSGE1 ---
HPI History of Present Illness Chief Complaint: Nosebleed Informant: patient Narrative Narrative: Patient started with a nosebleed Wednesday night. She had been hit in the nose by a grandson couple days before but had no bleeding with that. It was not really bothering her. She has radiant baseboard heating but does use humidifier at home. She does not have a history of nosebleeds. She is not on any anticoagulation. This includes no Motrin, Aleve, meloxicam, aspirin etc. She talk to primary physician the next day. He started Flonase at that time. She then had another nosebleed Wednesday. She then had another 1 this morning. It bleeds out of the left side. It is stopped with pressure. No fevers or chills. No facial pain or drainage. It is currently controlled with pressure on the nose. When I first saw the patient, I talked with her about options. I explained that we will get a better look in the nose. If there is an area we can see that can be cauterized we will do that. If not we have the option of thrombin spray, TXA or nasal packing. She states she was in here once with her mother who had nasal packing and she does not want that done. Also, she stated she has an appointment with ENT tomorrow morning but they were not able to get her in today. [facility] Medical History Abnormal Pap smear of cervix Arthritis Back problem Borderline type 2 diabetes mellitus Breast cancer screening Cataracts, bilateral Chronic lumbar radiculopathy Colitis COPD (chronic obstructive pulmonary disease) Degenerative disc disease, lumbar Diverticulitis Encounter for screening for malignant neoplasm of lung in current smoker with 30 pack year history or greater Health care maintenance History of tobacco use Hypersomnia Hypertension Indigestion COLBY (obstructive sleep apnea) Pain, joint, multiple sites Polyarthropathy Preventative health care Supraclavicular lymphadenopathy Tobacco use disorder, continuous Home Medications vit [id number] factor-folic acid cmb#2 500 mcg-20 mg-800 mcg tablet (Intrinsi [id number]) 1 tab PO DAILY 03/11/21 [History Last Taken Unknown] multivitamin 1 tab PO DAILY 04/09/21 [History Last Taken Unknown] omeprazole 20 mg capsule,delayed release 20 mg PO DAILY 04/09/21 [History Last Taken Unknown] budesonide-formoterol HFA 160 mcg-4.5 mcg/actuation aerosol inhaler (Symbicort) 2 puff inhalation BID #10.2 grams 12/12/21 [Rx Last Taken Unknown] budesonide 3 mg capsule,delayed,extended release 3 mg PO DAILY #90 ea 01/27/22 [Rx Last Taken Unknown] vibegron 75 mg tablet (Gemtesa) 75 mg PO DAILY 01/27/22 [History Last Taken Unknown] hydrochlorothiazide 25 mg tablet 25 mg PO DAILY #90 tabs 02/09/22 [Rx Last Taken Unknown] potassium chloride 20 mEq tablet,extended release 20 meq PO DAILY #90 tabs 02/09/22 [Rx Last Taken Unknown] albuterol sulfate 90 mcg/actuation aerosol inhaler 1 puff inhalation Q6H PRN shortness of breath or wheezing #8.5 grams 03/31/22 [Rx Last Taken Unknown] Allergy/AdvReac Type Severity Reaction Status Date / Time No Known Allergies Allergy Verified 04/23/22 16:06 Family History Mother Diabetes Heart disease Arthritis Hypertension CVA (cerebral vascular accident) Diabetes type 2, controlled Father Heart disease Myocardial infarction, Onset Age: 40 Hyperlipidemia Diabetes type 2, controlled Brother Diabetes Hypertension Surgical History caudal epidural H/O colonoscopy H/O LEEP (~2006) H/O vein stripping Social History Smoking Status: Former smoker quit date: 03/03/21 Tobacco: How many years used: 42 Electronic Cigarette Use: not used second hand exposure: No quit status: has quit before counseling given: provider counseling alcohol intake: current alcohol intake frequency: a few times a week substance use type: does not use caffeine: Yes what type of physical activity do you participate in: none and walking frequency: 1-2 times per week duration: 45-60 minutes/day seatbelt use: always do you feel safe at home: Yes additional social history: . Employed: [employer] ROS ROS ED Constitutional Constitutional ED: Denies chills or fever(s) Eyes Eyes: Denies change in vision ENT ENT ED: Reports other Details: See history of present illness ; Denies ear pain or sore throat Cardiovascular Cardiovascular: Denies chest pain or palpitations Respiratory/Chest Respiratory/Chest: Denies cough or dyspnea Gastrointestinal Gastrointestinal: Denies nausea or vomiting Genitourinary Genitourinary ED: Denies dysuria or hematuria Musculoskeletal Musculoskeletal: Denies back pain Integumentary Denies Abrasions or rash Neurologic Neurologic: Denies paresthesias or weakness Endocrine Endocrinology: Denies polydipsia or polyuria Hematologic/Lymphatic Hematologic/Lymphatic: Denies anemia, easy bleeding, easy bruising or lymphadenopathy Allergic/Immunologic Allergic/Immunologic ED: Denies urticaria EXAM Physical Exam Const Vital Signs: 04/23/22 16:03 04/23/22 18:02 04/23/22 19:31 Temperature 97.8 F Temperature Source Temporal Pulse Rate 68 82 70 Respiratory Rate 18 16 15 Blood Pressure 155/82 H 151/93 H 161/88 H Blood Pressure Mean 106 112 112 Pulse Ox 96 98 94 Oxygen Delivery Method Room Air Room Air Room Air Positive well nourished General Appearance ED: NAD; Negative for cyanotic, diaphoretic or pallor HEENT Reports moist mucous membranes HEENT Narrative: Patient has dried blood in the left nare. No posterior pharyngeal bleeding seen at this time. No active bleeding anteriorly. Right side looks clear. I will get some nasal spray and get a better look at this shortly. Eyes General Eye ED: Negative for scleral icterus Neck no lymphadenopathy and supple Resp normal respiratory effort Cardio regular rate and regular rhythm GI normal to inspection, nondistended, normoactive bowel sounds and non-tender Extremity normal to inspection Extremity Narrative: No abnormal bruising. Psych mental status grossly normal Skin no rashes or lesions noted, no wounds and skin turgor normal General Skin Exam: Negative for jaundice or pallor Rashes: No rashes noted MDM MDM MDM Narrative Medical decision making narrative: Procedure: Examination of the nose and control of epistaxis: Afrin was sprayed in both nares. We allow this to rest. Right had no sign of inflammation bleeding or anything. The left had some inflammation in Kiesselbach's plexus but it was a little bit posterior. Its not an area that I can easily reach for cauterization. I do not see a specific vessel that I would cauterize. I discussed options again with the patient. She would prefer not having packing. I used spray thrombin. She did well with this. The bleeding had already stopped. We got her up and walked her around. There is no repeat bleeding. She has an appointment about We discussed no blowing touching or moving her nose. She should avoid hot liquids and foods. Avoid bending over pushing pulling and straining. 16 hours from now with ENT and she should keep this appointment. Discharge Plan Triage Chief Complaint: Nosebleed ED Provider: Charanjit Enriquez Dx/Rx/DC Orders Clinical Impression: Left-sided epistaxis Instructions: ED Epistaxis (Adult) Prescriptions: No Action Intrinsi [id number] 500-20-800 mcg-mg-mcg tablet 1 tab PO DAILY omeprazole 20 mg capsule,delayed release(DR/EC) 20 mg PO DAILY multivitamin Tablet 1 tab PO DAILY budesonide-formoterol [Symbicort] 160-4.5 mcg/actuation HFA aerosol inhaler 2 puff inhalation BID Qty: 10.2 3RF Gemtesa 75 mg tablet 75 mg PO DAILY budesonide 3 mg capsule,delayed,extend.release 3 mg PO DAILY Qty: 90 0RF hydrochlorothiazide 25 mg tablet 25 mg PO DAILY Qty: 90 3RF potassium chloride 20 mEq tablet extended release 20 meq PO DAILY Qty: 90 1RF albuterol sulfate 90 mcg/actuation HFA aerosol inhaler 1 puff INHALATION Q6H PRN (Reason: shortness of breath or wheezing) Qty: 8.5 2RF Primary Care Provider: Anne-Marie Martínez Referrals: Erik Amezcua MD [Med Staff - Courtesy Staff] - 1 Day (See tomorrow as scheduled.) Anne-Marie Martínez MD [Primary Care Provider] - Disposition Disposition: Home, Self Care
[2022-04-23] MEDS: Mixture 30 ML Bottle 10 ML TOPICAL (16:47)
[2022-04-23] MEDS: Silver Nitrate (BKC) 2 EACH TOPICAL (16:47)
[2022-04-23] MEDS: Oxymetazoline 0.05% 1 SPRAY SPRAY.BTL 2 SPRAY NASAL (16:47)
[2022-04-23] MEDS: Thrombin 5,000 IU Kit (PSA) 5,000 IU Vial 5000 IU TOPICAL (16:48)
[2022-04-23 18:02] VITALS: BP 151/93; PULSE 82; RESP 16; O2SAT 98
[2022-04-23 19:31] VITALS: BP 161/88; PULSE 70; RESP 15; O2SAT 94
[2022-04-23 20:01] VITALS: BP 161/88; PULSE 70; RESP 15; O2SAT 94
== END 2022-04-23 20:03 | disposition home or self-care (01) ==
PROVIDERS: Emergency Provider Emergency Medicine; PCP Internal Medicine; Visit Provider Emergency Medicine
DX: R04.0 Epistaxis (principal); J44.9 Chronic obstructive pulmonary disease, unspecified; Z87.891 Personal history of nicotine dependence; I10 Essential (primary) hypertension; G47.33 Obstructive sleep apnea (adult) (pediatric)
CPT/HCPCS: 99284

== ENCOUNTER → 2022-05-11 | Outpatient (CLI) | payer OTHER, SELFPAY ==
[2022-05-11 15:17] LABS: Absolute Lymphocyte Count 2.56 X10^3/uL (0.83-4.51); Absolute Neutrophil Count 7.2 X10^3/uL (2.0-7.7); Basophil# 0.04 X10^3/uL; Basophil% 0.4 % (0-1); Eosinophil# 0.25 X10^3/uL; Eosinophils% 2.3 % (0-5); Hematocrit 38.9 % (37-47); Hemoglobin 12.9 g/dL (12.0-15.0); Lymphocyte # 2.56 X10^3/ul (0.83-4.51); Lymphocyte % 23.3 % (19-41); Mean Corp Hgb Conc 33.2 g/dL (32-36); Mean Corpuscular Hgb 32.3 pg (27.0-32.0); Mean Corpuscular Volume 97.3 fL (81-99); Mean Platelet Vol. 10.1 fl (6.2-12.0); Monocyte# 0.96 X10^3/uL; Monocyte% 8.7 % (0-10); NRBC Flagged by Analyzer 0 % (0-5); Neutrophil # 7.15 X10^3/uL (2.7-7.7); Neutrophil % 64.9 % (47-70); Platelet Count 302 K/mm3 (150-450); RBC Distribution Width CV 15.9 % (11.6-14.6)
[2022-05-11 16:05] LABS: ALB/GLOB Ratio 0.9 RATIO (0.9-2.4); AST(SGOT) 23 U/L (15-37); Alanine Aminotransfer ALT/SGPT 44 U/L (13-56); Albumin, Serum 3.6 g/dL (3.2-5.0); Alkaline Phosphatase 99 U/L (45-117); Amylase 22 U/L (25-115); Anion Gap 8 (5-15); BUN 13 mg/dL (7-18); BUN/Creat Ratio 15.1 RATIO (10-20); Calcium,Total 9.6 mg/dL (8.5-10.1); Chloride 98 mmol/L (98-107); Creatinine, Serum 0.86 mg/dL (0.55-1.02); EST Glomerular Filtration Rate 71 mL/min (>60); Est Glom Filt Rate - Afr Amer 86 mL/min (>60); Globulin 4.1 g/dL (2.2-4.2); Glucose 105 mg/dL (74-106); Lipase 72 U/L (73-393); Magnesium 1.9 mg/dL (1.6-2.6); Potassium 3.7 mmol/L (3.5-5.1); Protein, Total 7.7 g/dL (6.4-8.2); Sodium Level 134 mmol/L (136-145); Thyroid Stim Hormone (TSH) 1.31 uIU/mL (0.358-3.74)
== END | disposition home or self-care (01) ==
LOC: BIMLAB 13:36
PROVIDERS: PCP Internal Medicine; Referring Provider Physician Assistant; Visit Provider Physician Assistant
DX: I10 Essential (primary) hypertension (principal); R00.2 Palpitations; K21.9 Gastro-esophageal reflux disease without esophagitis; R10.13 Epigastric pain
CPT/HCPCS: 36415; 80053; 82150; 83690; 83735; 84443; 85025

== ENCOUNTER → 2022-05-14 | Outpatient (CLI) | payer OTHER, SELFPAY | END | disposition home or self-care (01) | LOC: PSN 06:49 | PROVIDERS: PCP Internal Medicine; Visit Provider Nurse Practitioner Family | DX: R00.2 Palpitations (principal) | CPT/HCPCS: 93005 ==

== ENCOUNTER → 2022-05-21 | Outpatient (CLI) | payer OTHER, SELFPAY | END | disposition home or self-care (01) | LOC: PSN 06:51 | PROVIDERS: PCP Internal Medicine; Visit Provider Physician Assistant | DX: R00.2 Palpitations (principal) | CPT/HCPCS: 93225; 93226 ==

== ENCOUNTER → 2022-07-23 | Outpatient (CLI) | payer OTHER, SELFPAY ==
[2022-07-31 14:45] LABS: HPV APTIMA, High Risk Negative (Negative)
== END | disposition home or self-care (01) ==
LOC: LABSPEC 14:12
PROVIDERS: PCP Internal Medicine; Referring Provider Nurse Practitioner Women's Health; Visit Provider Nurse Practitioner Women's Health
DX: Z01.419 Encounter for gynecological examination (general) (routine) without abnormal findings (principal)
CPT/HCPCS: 87624; 88175; G0145

== ENCOUNTER → 2022-11-17 | Outpatient (CLI) | payer OTHER, SELFPAY ==
[2022-11-17 10:29] LABS: Absolute Lymphocyte Count 2.44 X10^3/uL (0.83-4.51); Absolute Neutrophil Count 5.4 X10^3/uL (2.0-7.7); Basophil# 0.05 X10^3/uL; Basophil% 0.6 % (0-1); Eosinophil# 0.28 X10^3/uL; Eosinophils% 3.1 % (0-5); Hematocrit 37.2 % (37-47); Hemoglobin 11.7 g/dL (12.0-15.0); Lymphocyte # 2.44 X10^3/ul (0.83-4.51); Lymphocyte % 27.3 % (19-41); Mean Corp Hgb Conc 31.5 g/dL (32-36); Mean Corpuscular Hgb 30.4 pg (27.0-32.0); Mean Corpuscular Volume 96.6 fL (81-99); Mean Platelet Vol. 9.9 fl (6.2-12.0); Monocyte% 7.8 % (0-10); NRBC Flagged by Analyzer 0 % (0-5); Neutrophil # 5.44 X10^3/uL (2.7-7.7); Platelet Count 316 K/mm3 (150-450); RBC Distribution Width CV 15.2 % (11.6-14.6); RBC Distribution Width SD 53.8 fl (35.1-43.9); Red Blood Count 3.85 M/mm3 (4.2-5.4); White Blood Count 8.9 K/mm3 (4.4-11.0)
[2022-11-17 11:01] LABS: ALB/GLOB Ratio 0.8 RATIO (0.9-2.4); AST(SGOT) 18 U/L (15-37); Alanine Aminotransfer ALT/SGPT 28 U/L (13-56); Albumin, Serum 3.3 g/dL (3.2-5.0); Alkaline Phosphatase 104 U/L (45-117); Anion Gap 8 (5-15); BUN 15 mg/dL (7-18); BUN/Creat Ratio 14.9 RATIO (10-20); Calcium,Total 9.3 mg/dL (8.5-10.1); Chloride 100 mmol/L (98-107); Cholesterol 199 mg/dL (200); Creatinine, Serum 1.01 mg/dL (0.55-1.02); EST Glomerular Filtration Rate 59 mL/min (>60); Est Glom Filt Rate - Afr Amer 72 mL/min (>60); Globulin 4.1 g/dL (2.2-4.2); Glucose 113 mg/dL (74-106); High Density Lipoprotein 70 mg/dL; Protein, Total 7.4 g/dL (6.4-8.2); Sodium Level 136 mmol/L (136-145); Triglycerides 140 mg/dL; Very Low Density Lipoprotein 28 mg/dL (5-40)
== END | disposition home or self-care (01) ==
LOC: MTLAB 07:04
PROVIDERS: PCP Internal Medicine; Referring Provider Internal Medicine; Visit Provider Internal Medicine
DX: Z00.00 Encounter for general adult medical examination without abnormal findings (principal)
CPT/HCPCS: 36415; 80053; 80061; 85025

== ENCOUNTER → 2023-01-23 | Outpatient (CLI) | payer OTHER, SELFPAY ==
--- NOTE | 2023-01-23 08:08 | MRI_ITS ---
STUDY: MRI LUMBAR SPINE WITHOUT CONTRAST REASON FOR EXAM: Female, 62 years old patient with low back pain and radiculopathy. TECHNIQUE: Standardized fat and water weighted pulse sequences were obtained in the sagittal and axial planes. COMPARISON: MRI lumbar spine dated February 22, 2019. FINDINGS: T12-L1: Normal endplates. Normal disc height, signal and morphology. Normal bilateral facet joints. Normal central canal and bilateral lateral recesses. Normal bilateral intervertebral neural foramina. There is straightening of the normal lumbar lordosis. There is no substantial scoliosis. Normal conus medullaris that terminates at the T12-L1 level. L1-2: Normal endplates. Normal disc height, signal and morphology. Normal bilateral facet joints. Normal central canal and bilateral lateral recesses. Normal bilateral intervertebral neural foramina. L2-3: There is mild annular disk bulge and osteophyte complex. There is mild degenerative arthropathy of the facet joints. Bilateral neuroforamina are narrowed without MR evidence for nerve impingement. There is no appreciable acquired central canal stenosis. L3-4: There is mild anterolisthesis at this level with uncovering of the disc. There is a moderately severe degenerative arthropathy of the facet joints. There is moderately severe central acquired canal stenosis. Neural foramina are narrowed, more severely on the right with potential impingement of the right L3 nerve root at the neuroforamen. L4-5: There is a broad central disc protrusion. There is mild degenerative arthropathy of the facet joints. There is mild central acquired canal stenosis. Neuroforamina are moderately narrowed without definite nerve impingement. L5-S1: Normal endplates. Normal disc height, signal and morphology. Normal bilateral facet joints. Normal central canal and bilateral lateral recesses. Normal bilateral intervertebral neural foramina. Normal visualized sacral ala. Normal visualized paraspinous soft tissue structures. MRI/Spine Lumbar (Routine) IMPRESSION: Multilevel degenerative changes of the lumbar spine with neuroforaminal narrowing, central canal stenosis and potential nerve root impingement, as described. Electronically Signed: Alba Jones MD at 4:39 EDT ,
== END | disposition home or self-care (01) ==
LOC: MRI 07:30
PROVIDERS: PCP Internal Medicine; Referring Provider Anesthesiology Pain Medicine; Visit Provider Anesthesiology Pain Medicine
DX: M54.16 Radiculopathy, lumbar region (principal)
CPT/HCPCS: 72148

== ENCOUNTER → 2023-02-02 | Outpatient (CLI) | payer OTHER, SELFPAY ==
--- NOTE | 2023-02-02 14:07 | CT_ITS ---
STUDY: LOW DOSE CT LUNG CANCER SCREENING REASON FOR EXAM: Female, 62 years old. Lung cancer screening --patient smoked 1 pack per day for 44 years. Former smoker;asymptomatic RADIATION DOSAGE (If Supplied By Facility): CTDIvol = ( 2.39 ) mGy, DLP = ( 71.47 ) mGycm TECHNIQUE: No contrast was administered. Low dose technique was utilized (average mAS-38 and kVp 120). 1.25 mm axial source images with a slice interval of 1.25-mm were reconstructed in lung windows. 2.5 mm axial source images with a slice interval of 2.5-mm were reconstructed in lung windows. 5.0 mm axial source images with a slice interval of 5.0-mm were reconstructed in soft tissue windows. COMPARISON: Comparison is made with prior study dated November 25, 2021. NODULES: No suspicious nodules are seen. Emphysema: Mild degree of emphysematous changes. Endobronchial lesion: None Aorta: Atherosclerotic calcific plaques of the aortic arch. CORONARY ARTERIES: Coronary artery calcification is seen. Heart: Unremarkable Pulmonary artery: Unremarkable Mediastinal nodes: Small benign-appearing mediastinal lymph nodes. Other chest and abdominal findings: CT/Low Dose CT Lung Screening IMPRESSION: Lung-RADS category 2 - Continue annual screening with LDCT in 12 months. IMPORTANT NOTES FOR USE: ACR Lung-RADS Version 1.1 Assessment Categories Release Date: 2018 Category: Coded 0-4 bases on nodule(s) with highest degree of suspicion. Negative screen is defined as categories 1 and 2; a positive screen is defined as categories 3 and 4. Category 3 and 4A nodules that are unchanged on interval CT should be coded as category 2, and individuals returned to screening in 12 months. Category 4X: Category 3 or 4 nodules with additional imaging findings that increase the suspicion of lung cancer, such as spiculation, no suspicious nodules are seen. That doubles in size in 1 year, enlarged lymph notes, etc. Category Modifiers: S (significant finding unrelated to lung cancer) Electronically Signed: Jack Shea MD at 14:41 EDT ,
== END | disposition home or self-care (01) ==
LOC: CT 14:07
PROVIDERS: PCP Internal Medicine; Referring Provider Nurse Practitioner Family; Visit Provider Nurse Practitioner Family
DX: Z12.2 Encounter for screening for malignant neoplasm of respiratory organs (principal); Z87.891 Personal history of nicotine dependence
CPT/HCPCS: 71271

== ENCOUNTER → 2023-02-15 | Outpatient (CLI) | payer OTHER, SELFPAY ==
[2023-02-15 12:22] LABS: Absolute Lymphocyte Count 2.86 X10^3/uL (0.83-4.51); Absolute Neutrophil Count 6.4 X10^3/uL (2.0-7.7); Basophil# 0.05 X10^3/uL; Basophil% 0.5 % (0-1); Eosinophil# 0.36 X10^3/uL; Eosinophils% 3.4 % (0-5); Hematocrit 41.6 % (37-47); Hemoglobin 12.7 g/dL (12.0-15.0); Lymphocyte # 2.86 X10^3/ul (0.83-4.51); Lymphocyte % 26.8 % (19-41); Mean Corp Hgb Conc 30.5 g/dL (32-36); Mean Corpuscular Hgb 29.7 pg (27.0-32.0); Mean Corpuscular Volume 97.4 fL (81-99); Mean Platelet Vol. 10.4 fl (6.2-12.0); Monocyte% 9.4 % (0-10); NRBC Flagged by Analyzer 0 % (0-5); Neutrophil # 6.35 X10^3/uL (2.7-7.7); Neutrophil % 59.2 % (47-70); Platelet Count 317 K/mm3 (150-450); RBC Distribution Width CV 16.5 % (11.6-14.6); RBC Distribution Width SD 58.9 fl (35.1-43.9); Red Blood Count 4.27 M/mm3 (4.2-5.4); White Blood Count 10.7 K/mm3 (4.4-11.0)
[2023-02-15 12:59] LABS: Anion Gap 5 (5-15); BUN 16 mg/dL (7-18); BUN/Creat Ratio 18.7 RATIO (10-20); Calcium,Total 9.4 mg/dL (8.5-10.1); Chloride 103 mmol/L (98-107); Creatinine, Serum 0.85 mg/dL (0.55-1.02); EST Glomerular Filtration Rate 72 mL/min (>60); Est Glom Filt Rate - Afr Amer 87 mL/min (>60); Glucose 96 mg/dL (74-106); Potassium 4.1 mmol/L (3.5-5.1); Sodium Level 139 mmol/L (136-145)
== END | disposition home or self-care (01) ==
LOC: BIMLAB 08:53
PROVIDERS: PCP Internal Medicine; Visit Provider Internal Medicine
DX: I10 Essential (primary) hypertension (principal)
CPT/HCPCS: 36415; 80048; 85025

== ENCOUNTER → 2023-03-03 | Outpatient (CLI) | payer OTHER, SELFPAY ==
--- NOTE | 2023-03-03 07:27 | BI_ITS ---
MAMMOGRAPHY - BILATERAL SCREENING REASON FOR EXAM: Female, 62 years old. Routine annual screening examination. PERTINENT HISTORY: Non-contributory. TECHNIQUE: Digital bilateral breast sofía (3D mammographic acquisition) in the CC and MLO projections. 2-D mediolateral oblique (MLO) and craniocaudad (CC) views of both breasts were obtained. CAD: Full Field Digital Mammography with Computer Added Detection was performed. COMPARISON: Comparison is made with prior study March 18, 2022 and March 14, 2021. FINDINGS: Breast Composition: The breasts are heterogeneously dense, which may obscure small masses. There are no dominant masses or suspicious calcifications. Stable benign-appearing bilateral axillary lymph nodes. No other significant abnormalities are identified. There has been no significant change since the prior study. BI/SCRN MAMM (CAD)W/SOFÍA BILAT IMPRESSION: Stable bilateral screening mammogram. Yearly follow-up mammogram recommended. (A) ASSESSMENT CATEGORY: BIRADS Category 2: Benign. A letter regarding these results will be sent to the patient by the facility within 30 days. Approximately 10% of breast cancers are not detected by mammography. A normal mammogram should not delay biopsy of a clinically suspicious abnormality. [id number] Electronically Signed: Jack Shea MD at 8:52 EDT ,
== END | disposition home or self-care (01) ==
LOC: OPBI 07:26
PROVIDERS: PCP Internal Medicine; Referring Provider Internal Medicine; Visit Provider Internal Medicine
DX: Z12.31 Encounter for screening mammogram for malignant neoplasm of breast (principal)
CPT/HCPCS: 77063; 77067

== ENCOUNTER → 2023-03-24 | Outpatient (CLI) | payer OTHER, SELFPAY ==
[2023-03-24 12:52] LABS: Absolute Lymphocyte Count 3.27 X10^3/uL (0.83-4.51); Absolute Neutrophil Count 6.8 X10^3/uL (2.0-7.7); Basophil# 0.04 X10^3/uL; Basophil% 0.3 % (0-1); Eosinophil# 0.25 X10^3/uL; Eosinophils% 2.2 % (0-5); Hemoglobin 11.7 g/dL (12.0-15.0); Lymphocyte # 3.27 X10^3/ul (0.83-4.51); Lymphocyte % 28.5 % (19-41); Mean Corp Hgb Conc 30.8 g/dL (32-36); Mean Corpuscular Hgb 29.5 pg (27.0-32.0); Mean Corpuscular Volume 95.7 fL (81-99); Monocyte# 1.02 X10^3/uL; Monocyte% 8.9 % (0-10); NRBC Flagged by Analyzer 0 % (0-5); Neutrophil # 6.82 X10^3/uL (2.7-7.7); Neutrophil % 59.6 % (47-70); Platelet Count 339 K/mm3 (150-450); RBC Distribution Width CV 15.6 % (11.6-14.6); RBC Distribution Width SD 55.8 fl (35.1-43.9); Red Blood Count 3.97 M/mm3 (4.2-5.4); White Blood Count 11.5 K/mm3 (4.4-11.0)
[2023-03-24 12:54] LABS: ALB/GLOB Ratio 0.9 RATIO (0.9-2.4); AST(SGOT) 19 U/L (15-37); Alanine Aminotransfer ALT/SGPT 27 U/L (13-56); Albumin, Serum 3.5 g/dL (3.2-5.0); Alkaline Phosphatase 101 U/L (45-117); Anion Gap 2 (5-15); BUN 17 mg/dL (7-18); BUN/Creat Ratio 19.3 RATIO (10-20); Calcium,Total 9.1 mg/dL (8.5-10.1); Chloride 102 mmol/L (98-107); Creatinine, Serum 0.88 mg/dL (0.55-1.02); EST Glomerular Filtration Rate 69 mL/min (>60); Est Glom Filt Rate - Afr Amer 84 mL/min (>60); Globulin 3.9 g/dL (2.2-4.2); Glucose 103 mg/dL (74-106); Potassium 3.8 mmol/L (3.5-5.1); Protein, Total 7.4 g/dL (6.4-8.2); Sodium Level 136 mmol/L (136-145)
== END | disposition home or self-care (01) ==
LOC: BIMLAB 09:33
PROVIDERS: PCP Internal Medicine; Referring Provider Internal Medicine; Visit Provider Internal Medicine
DX: Z01.818 Encounter for other preprocedural examination (principal)
CPT/HCPCS: 36415; 80053; 85025

== ENCOUNTER 2023-05-27 11:00 | Outpatient (RCR) | payer OTHER, SELFPAY ==
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
--- NOTE | 2023-06-02 12:20 | HP.PTREVAL ---
Re-Evaluation Intro: RYAN GUTIERREZ, It has been my pleasure to treat DIVYA PETTY over the last 10 visits for LUMBAR DISCECTOMIES AND FUSION 04/07/23. Please see the progress note below for an update on the physical therapy plan of care! Subjective Subjective: PATIENT REPORTS HER BACK IS DOING A LOT BETTER. SHE STATES SHE ISN'T HAVING MUCH PAIN. I'M FEELING STRONGER AND WALKING BETTER. SHE ALSO REPORTS SHE CAN DO THINGS LIKE PULLING HER LEGS UP EASIER AND THAT MAKES DRESSING EASIER. GETTING AROUND IS EASIER AND GETTING IN AND OUT OF THE CAR IS EASIER. PLANNING TO GO BACK TO WORK 06/07/23. FOLLOW UP WITH DR. JARA PENDING 06/22/23. HAS BEEN OUT OF STATE SINCE LAST SUNDAY 05/28 AND [place]ER TO GET BACK TO EXERCISE. Objective Objective/Function: PATIENT WAS SEEN TODAY FOR RE-ASSESSMENT OF PROGRESS TOWARD THE SET PT GOALS AND THE NEED FOR FURTHER PHYSICAL THERAPY VS READINESS FOR DISCHARGE. PATIENT IS MAKING GOOD PROGRESS WITH PT AND IS A GOOD CANDIATE TO CONTINUE PT BUT IS LIMITED ON PT VISITS FOR THE YEAR. SHE IS GOING TO GOING TO CONSIDER CONTININUING PT VS GETTING A DEVELOPMENT ADVISOR AND DISCUSS WITH HER SURGEON BEFORE MAKING A FINAL DECISION. UPON EXAM TODAY: Sensory deficit: DECREASED LIGHT TOUCH SENSATION L ANTEROLATERAL MID AND DISTAL THIGH LIGHT TOUCH SENSATION COMPARED TO RIGHT. ROM deficit: MOD HARJIT HIP FLEXOR AND GASTROC SOLEUS TIGHTNESS L>R. MODERATE L AND MILD R LE HS TIGHTNESS. Motor deficit: R LE 5/5. L HIP 4-/5, KNEE EXT 4-/5, KNEE FLEX 4/5, ANKLE 3+/5. Reflexes: 2/3 HARJIT QUADS AND R ACHILLES. 1/2 L ACHILES Dural Signs: NEGATIVE HARJIT LE'S. Lumbar mvmt loss: FLEX - MIN EXT - MOD TO GUERRERO R SG - MOD L SG - MOD PATIENT C/O CENTRAL LBP WITH LUMBAR EXTENSION ROM TESTING IN STANDING BUT DENIES INCREASED PAIN WITH TESTING OTHERWISE. Core strength: FAIR Palpation: NO ACUTE BACK OR HIP TENDERNESS. INSTRUCTED PATIENT IN SKTC AND LTR TODAY WITH GOOD TOLERANCE. Plan Plan Plan: HOLD CHART. Balance/Gait/Functional tests Balance/Special Test Scores Oswestry Low Back Score: 13 Goals Goals Goal 1:: DECREASE C/O LOW BACK AND LLE SX'S BY AT LEAST 50% TO EASE ADL'S Goal Time Frame: 4-6 Weeks Goal Progress: Goal Met Goal 2:: Patient will have increased BLE and core strength increased by 1/2 grade of all effected musculature. Goal Time Frame: 4-6 Weeks Goal Progress: Progressing Goal 3:: Patient will be able to stand and walk for 20 minutes without increased symptoms/needing to sit down for increased ADL and recreational tolerance. Goal Time Frame: 4-6 Weeks Goal Progress: Progressing Goal 4:: PATIENT WILL HAVE IMPROVED BACK OSWESTRY SCORE OF AT LEAST 5 POINTS. Goal Progress: Goal Met Goal 5:: PATIENT WILL BE INDEP WITH A HEP FOR CONTINUED IMPROVEMENT ONCE FORMAL PHYSICAL THERAPY CONCLUDES. Goal Progress: Progressing Anticipated Interventions Anticipated Interventions Patient/Client Instruction: Educate patient on: Condition, Plan of Care and Risk Factors For the Purpose of:: To improve self management Therapeutic Exercise to Include: Strength training, Body mechanics, Postural training, Flexibilty training, Neuromotor development and Dynamic Lumbar Stabilization For the Purpose of:: To decrease pain, To increase ROM, To improve muscle performance and motor function, To increase tolerance to activity/condition/position and To improve ability of physical actions for home/community/work/leisure Cryotherapy (ice pack, ice massage): Yes For the Purpose of:: To decrease pain and To decrease swelling/inflammation Re-Evaluation Ending Re-evaluation ending: Please do not hesitate to contact me at [phone] by phone or if you have questions or concerns regarding this new plan of care! Sincerely, Monica Schulz, PT, Cert MDT
--- NOTE | 2023-08-09 11:53 | HP.PTDCNRP_ITS ---
Patient Information Patient Information: DIVYA PETTY was seen in my office for initial evaluation on 04/30/23. The following Plan of Care was established for this patient: POC Established Initial Frequency: 2-3x /Week Initial Duration: 4-6 Months Anticipated Interventions Patient/Client Instruction: Educate patient on: Condition, Plan of Care and Risk Factors For the Purpose of:: To improve self management Therapeutic Exercise to Include: Strength training, Body mechanics, Postural training, Flexibilty training, Neuromotor development and Dynamic Lumbar Stabilization For the Purpose of:: To decrease pain, To increase ROM, To improve muscle performance and motor function, To increase tolerance to activity/ condition/position and To improve ability of physical actions for home/community/work/leisure Cryotherapy (ice pack, ice massage): Yes For the Purpose of:: To decrease pain and To decrease swelling/inflammation Last Seen Last Seen: This patient was last seen in our office 06/02/23. Pertinent comments regarding their Physical therapy will appear below: This patient has not returned to Physical Therapy and is appropriate to return to MD for further follow-up as needed. At this point I will be discontinuing this patient from physical therapy. I would be happy to see this patient again in the future if found appropriate by the physician. Thank you! Monica Schulz, PT, Cert MDT Balance/Gait/Functional tests Balance/Special Test Scores Oswestry Low Back Score: 13
== END 2023-05-27 19:00 | disposition home or self-care (01) ==
LOC: PT 11:00
PROVIDERS: PCP Internal Medicine
DX: M51.36 Other intervertebral disc degeneration, lumbar region (principal)
CPT/HCPCS: 97110; 97112; 97162

== ENCOUNTER 2023-06-18 16:06 | Emergency (ER) | payer OTHER, SELFPAY ==
[2023-06-18 16:07] VITALS: BP 152/73; PULSE 74; RESP 20; TEMP 36.2; O2SAT 100; BMI 36.5
--- NOTE | 2023-06-18 16:22 | CT_ITS ---
STUDY: CTA CHEST REASON FOR EXAM: Female, 63 years old. Dyspnea RADIATION DOSAGE (If Supplied By Facility): CTDIvol = ( 11.13 ) mGy, DLP = ( 486.47 ) mGycm TECHNIQUE: The examination was performed with the intravenous administration of IV 100mL Isovue-370. Post-processing of the angiographic images was performed, with multiplanar reformation and 3D reconstruction. Individualized dose optimization techniques were used for this CT. COMPARISON: Series of CT examinations with the most remote of 416 FINDINGS: Tubes and lines: 1. No life-support noted. CTA: PULMONARY ARTERIES: There is normal configuration and contrast opacification of pulmonary outflow tract, main pulmonary arteries, segmental and intersegmental pulmonary arteries bilaterally without evidence of intraluminal filling defects. AORTIC ARCH: Mild prominence of the ascending aorta at 3.4 cm. No evidence of dissection. Normal appearance of the aortic arch and origin of the great vessels. HEART: Cardiac contour is normal. No evidence pericardial effusion. Diffuse coronary vascular calcifications. CT CHEST: LUNGS: [No focal infiltrate consolidation or effusion. There is a small noncalcified 3 mm nodule in the RIGHT midlung projecting within the RIGHT middle lobe.. There is accumulation secretion within the RIGHT middle lobe bronchus, no complete obstruction however.. PLEURAL SPACES: Unremarkable, no effusion or pneumothorax.. MEDIASTINUM AND LYMPH NODES: Unremarkable. No significant adenopathy. BONES: Unremarkable ABDOMEN: There is a small low-density lesion in the LEFT hepatic lobe measuring approximately 6 mm, too small to characterize however small cyst is a consideration. No ductal dilatation. Other: None IMPRESSIONS: 1. No CTA evidence of pulmonary embolism. 2. No CTA evidence of aortic aneurysm or dissection 3. Normal CT appearance of the heart and pericardium. Diffuse coronary vascular calcifications are noted. 4. No focal infiltrate consolidation or effusion noted. 5. Small 3 mm noncalcified pulmonary nodule in the RIGHT middle lobe without significant interval change since remote examination of 08/16/2018. Electronically Signed: Jhon Gagnon MD at 18:49 EST , CT/CTA Chest W/WO Contrast IMPRESSION: undefined
--- NOTE | 2023-06-18 16:22 | EKG12_ITS ---
Test Reason : DYSPNEA/SOB Blood Pressure : / mmHG Vent. Rate : 076 BPM Atrial Rate : 076 BPM P-R Int : 170 ms QRS Dur : 082 ms QT Int : 388 ms P-R-T Axes : 074 070 068 degrees QTc Int : 436 ms Normal sinus rhythm Normal ECG Confirmed by Regis Ambrose ([id number]), web editor DUSTIN JOHNSON ([id number]) on 06/21/2023 9:44:00 AM Referred By: Confirmed By:Regis Ambrose
--- NOTE | 2023-06-18 16:25 | EDS_ITS ---
HPI <MARIBETH Arguelles - Last Filed: 06/18/23 19:11> History of Present Illness Chief Complaint: Shortness of Breath Narrative Narrative: 63-year-old female with PMH of HTN, COLBY, mild COPD and former smoker states she has had dyspnea on exertion x 1 week. A few days into her symptoms she developed pain in her bilateral thoracic back worse with movement. No injury. No chest pain. No fever, chills, or significant cough. She had outpatient blood work this morning and was called and told D-dimer was elevated and to go to the ED. She has no history of DVT/PE or risk factors. PFSH <MARIBETH Arguelles - Last Filed: 06/18/23 19:11> [facility] Medical History (Updated 06/18/23 @ 19:05 by MARIBETH Arguelles) Abnormal Pap smear of cervix Arthritis Back problem Borderline type 2 diabetes mellitus Cataracts, bilateral Chronic lumbar radiculopathy Colitis COPD (chronic obstructive pulmonary disease) Degenerative disc disease, lumbar Diverticulitis Encounter for screening for malignant neoplasm of lung in current smoker with 30 pack year history or greater Flu vaccine need GERD (gastroesophageal reflux disease) History of tobacco use Hypersomnia Hypertension Indigestion Obesity COLBY (obstructive sleep apnea) Pain, joint, multiple sites Pap smear of cervix unsatisfactory Polyarthropathy Preoperative evaluation to rule out surgical contraindication Preventative health care Supraclavicular lymphadenopathy Tobacco use disorder, continuous Home Medications vit [id number] factor-folic acid cmb#2 500 mcg-20 mg-800 mcg tablet (Intrinsi [id number]) 1 tab PO DAILY 03/11/21 [History Last Taken Unknown] multivitamin 1 tab PO DAILY 04/09/21 [History Last Taken Unknown] vibegron 75 mg tablet (Gemtesa) 75 mg PO DAILY 01/27/22 [History Last Taken Unknown] albuterol sulfate 90 mcg/actuation aerosol inhaler 1 puff inhalation Q6H PRN shortness of breath or wheezing #8.5 grams 03/31/22 [Rx Last Taken Unknown] estradiol 0.01% (0.1 mg/gram) vaginal cream 1 g vaginal 2XW 07/23/22 [History Last Taken Unknown] potassium chloride 20 mEq tablet,extended release See Rx Instructions .Route .COMPLEX #90 tabs 01/28/23 [Rx Last Taken Unknown] omeprazole 40 mg capsule,delayed release 40 mg PO DAILY #90 caps 02/15/23 [Rx Last Taken Unknown] budesonide 3 mg capsule,delayed,extended release 9 mg PO DAILY Colitis flare up 03/24/23 [History Last Taken Unknown] budesonide-formoterol HFA 160 mcg-4.5 mcg/actuation aerosol inhaler (Symbicort) 2 puff inhalation BID #10.2 grams 03/24/23 [Rx Last Taken Unknown] hydrochlorothiazide 25 mg tablet 25 mg PO DAILY #90 tabs 05/28/23 [Rx Last Taken Unknown] naltrexone 8 mg-bupropion 90 mg tablet,extended release (Contrave) 1 tab PO BID 1 month #60 tabs 05/28/23 [Rx Last Taken Unknown] cyclobenzaprine 10 mg tablet 10 mg PO HS PRN muscle spasm #30 tabs 06/18/23 [Rx Last Taken Unknown] Allergy/AdvReac Type Severity Reaction Status Date / Time amoxicillin Allergy Mild Rash Verified 06/18/23 14:12 Family History Mother Diabetes Heart disease Arthritis Hypertension CVA (cerebral vascular accident) Diabetes type 2, controlled Father Heart disease Myocardial infarction, Onset Age: 40 Hyperlipidemia Diabetes type 2, controlled Brother Diabetes Hypertension Surgical History caudal epidural H/O colonoscopy H/O LEEP (~2006) H/O vein stripping History of back surgery Social History Smoking Status: Former smoker quit date: 03/03/21 Tobacco: How many years used: 42 Electronic Cigarette Use: not used second hand exposure: No quit status: has quit before counseling given: provider counseling alcohol intake: current alcohol intake frequency: a few times a week substance use type: does not use caffeine: Yes what type of physical activity do you participate in: none and walking frequency: 1-2 times per week duration: 45-60 minutes/day seatbelt use: always do you feel safe at home: Yes additional social history: . Employed: [employer] <MARIBETH Arguelles - Last Filed: 06/18/23 19:11> ROS ED ROS Narrative Constitutional: Negative for fever, chills, malaise. CVS: Negative for palpitations, chest pain, syncope. Respiratory: Positive for shortness of breath. Negative for orthopnea. GI: Negative for abdominal pain, nausea, vomiting melena, hematochezia. EXAM <MARIBETH Arguelles Last Filed: 06/18/23 19:11> Physical Exam Narrative Exam Narrative: CONST: Patient sitting in no acute distress. EYES: Normal inspection. NECK: Normal inspection. RESP: No respiratory distress, CTAB. CVS: Regular rate and rhythm, no murmur, no gallop. ABD: Soft and nontender, no guarding or rebound, nondistended. Back: Normal inspection, no midline tenderness. Tender over bilateral thoracic musculature. SKIN: Color normal, no rash, warm, dry, intact. EXTREMITIES: Normal appearance, no pedal edema. No calf tenderness, 2+ radial and DP pulses. NEURO: Oriented x4. PSYCH: Normal affect. Const Vital Signs: 06/18/23 16:07 06/18/23 17:30 06/18/23 17:31 Temperature 97.2 F L Temperature Source Temporal Pulse Rate 74 83 Respiratory Rate 20 H 20 H Respiratory Effort Short of Breath Respiratory Depth Normal Respiratory Pattern Tachypnea Blood Pressure 152/73 H Blood Pressure Mean 99 Pulse Ox 100 96 Oxygen Delivery Method Room Air Room Air Room Air 06/18/23 19:13 Temperature 97.4 F L Temperature Source Pulse Rate 78 Respiratory Rate 16 Respiratory Effort Respiratory Depth Respiratory Pattern Blood Pressure 154/81 H Blood Pressure Mean 105 Pulse Ox 97 Oxygen Delivery Method <Dr. Adarsh Wise DO - Last Filed: 06/18/23 22:12> Physical Exam Const Vital Signs: 06/18/23 16:07 06/18/23 17:30 06/18/23 17:31 Temperature 97.2 F L Temperature Source Temporal Pulse Rate 74 83 Respiratory Rate 20 H 20 H Respiratory Effort Short of Breath Respiratory Depth Normal Respiratory Pattern Tachypnea Blood Pressure 152/73 H Blood Pressure Mean 99 Pulse Ox 100 96 Oxygen Delivery Method Room Air Room Air Room Air 06/18/23 19:13 Temperature 97.4 F L Temperature Source Pulse Rate 78 Respiratory Rate 16 Respiratory Effort Respiratory Depth Respiratory Pattern Blood Pressure 154/81 H Blood Pressure Mean 105 Pulse Ox 97 Oxygen Delivery Method MDM <MARIBETH Arguelles Last Filed: 06/18/23 19:11> MDM MDM Narrative Medical decision making narrative: Patient has had dyspnea on exertion for a week. She having bilateral scapular/thoracic back pain as well. No chest pain. She had an outpatient elevated D-dimer and was sent here for evaluation. She appears well and nontoxic. Vital signs are stable. She is 97% or above on room air and speaking full sentences no distress. Normal heart and lung sounds. Her back pain is reproducible to palpation. She has no lower extremity edema or clinical signs of DVT. I reviewed her outpatient labs from this morning?white count is normal at 10.8, hemoglobin 11.2 is stable. BMP unremarkable. Since D-dimer is high a CT was ordered. CTA shows no acute process. EKG is normal sinus rhythm with no ischemic changes and troponin is 7 ruling out ACS. Patient is comfortable discharge home and follow-up with her primary care doctor. I discussed she may need further tests like a stress test. I recommended [id number] analgesia for back pain as it is consistent with musculoskeletal pain on exam. She was comfortable with this plan and discharged in stable condition. Lab Data Attestation: I reviewed the patient's lab results. Labs: Laboratory Results - last 24 hr 06/18/23 16:45 Troponin I High Sens 7 Radiography Diagnostic Testing: Clinical Impression(s) from Imaging Studies Chest CTA 06/18/23 16:22 IMPRESSION: undefined <Dr. Adarsh Wise, DO - Last Filed: 06/18/23 22:12> [facility] Lab Data Labs: Laboratory Results - last 24 hr 06/18/23 16:45 Troponin I High Sens 7 Radiography Diagnostic Testing: Clinical Impression(s) from Imaging Studies Chest CTA 06/18/23 16:22 IMPRESSION: undefined Treatment and Re-Evaluation :: I have personally performed a face to face assessment of the patient and have reviewed the JULI Note. I performed a substantive portion of the visit including all aspects of the following. My ferreira findings include: History: Patient presents with shortness of breath that has been getting worse over the past week. Patient states it came on rather suddenly. Patient states her breathing is worse with any exertion. Patient admits to some stabbing pain in her lower thoracic area that radiates around to her lower chest. Patient states her pain is worse with deep breathing and with laying flat. Patient denies any fevers or chills. Patient denies any nausea or vomiting. Patient was seen by her primary care physician who ordered a D-dimer. This came back elevated and the patient was then referred to the emergency department. Exam: Vital signs are stable. Patient is afebrile. Patient is in no acute distress. Oral mucosa is pink and moist. Neck is supple. Trachea is midline. There is no JVD. Heart was regular rate and rhythm. Lungs are clear and equal bilaterally. Abdomen is soft. Bowel sounds are normal. There is no tenderness. There is no rebound or guarding noted. There is mild tenderness over the lower thoracic paraspinal area bilaterally. There is no bony crepitance or step-off noted. Cranial nerves II through XII are intact. There are no focal motor or sensory deficits noted. Medical Decision Making: Differential diagnosis includes pulmonary embolism, musculoskeletal pain, pneumonia, pneumothorax, cardiac dysrhythmia, and cardiac ischemia. EKG will be obtained to assess for cardiac dysrhythmia and cardiac ischemia. High-sensitivity troponin will be obtained to assess for cardiac ischemia. CTA of the chest will be obtained to assess for pulmonary embolism. EKG was obtained. On my independent interpretation, it showed a normal sinus rhythm with a rate of 76. VT interval, QRS interval, and QTc intervals were all normal. [place] was normal. There are no acute ST or T wave changes. High- sensitivity troponin was reviewed and was normal at 7. CTA of the chest was obtained. There is no evidence of pulmonary embolism or aortic dissection. There is no acute infiltrate noted. This was interpreted by the radiologist and was also independently reviewed by myself. Patient was advised of her findings. Patient was instructed to follow-up with her primary care physician in 5 to 7 days. Patient understood and was agreeable with the plan. All questions were answered. Discharge Plan Triage Chief Complaint: Shortness of Breath Other Complaint: Abn Labs ED Midlevel Provider: Cydney Perez ED Provider: Adarsh Wise Dx/Rx/DC Orders Clinical Impression: Dyspnea on exertion Instructions: ED Dyspnea Prescriptions: No Action Intrinsi [id number] 500-20-800 mcg-mg-mcg tablet 1 tab PO DAILY multivitamin Tablet 1 tab PO DAILY Gemtesa 75 mg tablet 75 mg PO DAILY estradiol 0.01 % (0.1 mg/gram) cream 1 g vaginal 2XW omeprazole 40 mg capsule,delayed release(DR/EC) 40 mg PO DAILY Qty: 90 2RF Contrave 8-90 mg tablet extended release 1 tab PO BID 30 Days Qty: 60 1RF Rx Instructions: Take 1 tab QAM x 7 days then increase to BID. hydrochlorothiazide 25 mg tablet 25 mg PO DAILY Qty: 90 3RF budesonide 3 mg capsule,delayed,extend.release 9 mg PO DAILY budesonide-formoterol [Symbicort] 160-4.5 mcg/actuation HFA aerosol inhaler 2 puff inhalation BID Qty: 10.2 3RF cyclobenzaprine 10 mg tablet 10 mg PO HS PRN (Reason: muscle spasm) Qty: 30 0RF albuterol sulfate 90 mcg/actuation HFA aerosol inhaler 1 puff INHALATION Q6H PRN (Reason: shortness of breath or wheezing) Qty: 8.5 2RF potassium chloride 20 mEq tablet extended release See Rx Instructions .ROUTE .COMPLEX Qty: 90 1RF Dose Instruction: TAKE 1 TABLET BY MOUTH EVERY DAY Rx Instructions: TAKE 1 TABLET BY MOUTH EVERY DAY Primary Care Provider: Anne-Marie Martínez Referrals: Anne-Marie Martínez MD [Primary Care Provider] - Activity Restrictions/Additional Instructions: The CAT scan of your chest showed no blood clots or abnormalities. I am not sure what is causing your shortness of breath with exertion. Please follow-up with your primary care doctor for further outpatient testing. Disposition Disposition: Home, Self Care Discharge Date/Time: 06/18/23 19:14
[2023-06-18 17:25] LABS: Troponin-I HS 7 pg/mL (3.0-54.0)
[2023-06-18 17:30] VITALS: PULSE 83; RESP 20; O2SAT 96
[2023-06-18 17:31] VITALS: O2SAT 97
[2023-06-18 19:13] VITALS: BP 154/81; PULSE 78; RESP 16; TEMP 36.3; O2SAT 97
== END 2023-06-18 19:14 | disposition home or self-care (01) ==
PROVIDERS: Physician Assistant; Emergency Provider Emergency Medicine; PCP Internal Medicine; Visit Provider Emergency Medicine
DX: R06.00 Dyspnea, unspecified (principal); J44.9 Chronic obstructive pulmonary disease, unspecified; M54.6 Pain in thoracic spine; Z87.891 Personal history of nicotine dependence; I10 Essential (primary) hypertension; G47.33 Obstructive sleep apnea (adult) (pediatric); K21.9 Gastro-esophageal reflux disease without esophagitis; Z79.899 Other long term (current) drug therapy; Z79.51 Long term (current) use of inhaled steroids
CPT/HCPCS: 71275; 84484; 93005; 99283; Q9967

== ENCOUNTER → 2023-06-18 | Outpatient (CLI) | payer OTHER, SELFPAY ==
[2023-06-18 15:29] LABS: Absolute Lymphocyte Count 2.78 X10^3/uL (0.83-4.51); Absolute Neutrophil Count 6.6 X10^3/uL (2.0-7.7); Basophil# 0.06 X10^3/uL; Basophil% 0.6 % (0-1); Eosinophil# 0.38 X10^3/uL; Eosinophils% 3.5 % (0-5); Hematocrit 35.9 % (37-47); Hemoglobin 11.2 g/dL (12.0-15.0); Lymphocyte # 2.78 X10^3/ul (0.83-4.51); Lymphocyte % 25.7 % (19-41); Mean Corp Hgb Conc 31.2 g/dL (32-36); Mean Corpuscular Hgb 28.4 pg (27.0-32.0); Mean Corpuscular Volume 90.9 fL (81-99); Mean Platelet Vol. 9.7 fl (6.2-12.0); Monocyte# 0.96 X10^3/uL; Monocyte% 8.9 % (0-10); NRBC Flagged by Analyzer 0 % (0-5); Neutrophil # 6.57 X10^3/uL (2.7-7.7); Neutrophil % 60.8 % (47-70); Platelet Count 380 K/mm3 (150-450); RBC Distribution Width CV 15.9 % (11.6-14.6); RBC Distribution Width SD 53.3 fl (35.1-43.9); Red Blood Count 3.95 M/mm3 (4.2-5.4); White Blood Count 10.8 K/mm3 (4.4-11.0)
[2023-06-18 15:43] LABS: D-Dimer Quantitative (DVT/PE) 0.68 FEU/ug/m (0.27-0.49)
[2023-06-18 15:47] LABS: Anion Gap 7 (5-15); BUN 15 mg/dL (7-18); BUN/Creat Ratio 14.9 RATIO (10-20); Calcium,Total 9.4 mg/dL (8.5-10.1); Chloride 105 mmol/L (98-107); Creatinine, Serum 1.01 mg/dL (0.55-1.02); EST Glomerular Filtration Rate 59 mL/min (>60); Est Glom Filt Rate - Afr Amer 71 mL/min (>60); Glucose 131 mg/dL (74-106); Potassium 3.6 mmol/L (3.5-5.1); Sodium Level 140 mmol/L (136-145)
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
== END | disposition home or self-care (01) ==
LOC: BIMLAB 14:50
PROVIDERS: PCP Internal Medicine; Visit Provider Nurse Practitioner
DX: R06.02 Shortness of breath (principal)
CPT/HCPCS: 36415; 80048; 85025; 85379

== ENCOUNTER → 2023-07-23 | Outpatient (CLI) | payer OTHER, SELFPAY ==
[2023-07-23 16:41] LABS: Absolute Neutrophil Count 6.1 X10^3/uL (2.0-7.7); Basophil# 0.05 X10^3/uL; Basophil% 0.5 % (0-1); Eosinophil# 0.32 X10^3/uL; Eosinophils% 3.1 % (0-5); Hematocrit 37.6 % (37-47); Hemoglobin 11.5 g/dL (12.0-15.0); Mean Corp Hgb Conc 30.6 g/dL (32-36); Mean Corpuscular Hgb 27.6 pg (27.0-32.0); Mean Corpuscular Volume 90.2 fL (81-99); Mean Platelet Vol. 9.9 fl (6.2-12.0); Monocyte# 0.89 X10^3/uL; Monocyte% 8.6 % (0-10); NRBC Flagged by Analyzer 0 % (0-5); Neutrophil # 6.14 X10^3/uL (2.7-7.7); Neutrophil % 59.1 % (47-70); Platelet Count 391 K/mm3 (150-450); RBC Distribution Width CV 16.2 % (11.6-14.6); RBC Distribution Width SD 52.8 fl (35.1-43.9); Red Blood Count 4.17 M/mm3 (4.2-5.4); White Blood Count 10.4 K/mm3 (4.4-11.0)
[2023-07-23 17:12] LABS: Anion Gap 9 (5-15); BUN 14 mg/dL (7-18); BUN/Creat Ratio 16.7 RATIO (10-20); Calcium,Total 9.6 mg/dL (8.5-10.1); Chloride 101 mmol/L (98-107); Creatinine, Serum 0.84 mg/dL (0.55-1.02); EST Glomerular Filtration Rate 73 mL/min (>60); Est Glom Filt Rate - Afr Amer 88 mL/min (>60); Glucose 98 mg/dL (74-106); Potassium 3.6 mmol/L (3.5-5.1); Sodium Level 139 mmol/L (136-145)
== END | disposition home or self-care (01) ==
LOC: LAB 15:28
PROVIDERS: PCP Internal Medicine; Referring Provider Internal Medicine Cardiovascular Disease; Visit Provider Internal Medicine Cardiovascular Disease
DX: R06.02 Shortness of breath (principal)
CPT/HCPCS: 36415; 80048; 85025

== ENCOUNTER 2023-07-30 06:59 | Day surgery (SDC) | payer OTHER, SELFPAY ==
[2023-07-29 08:14] VITALS: BMI 35.9
--- NOTE | 2023-07-30 08:27 | CL.D_ITS ---
Patient Name: DIVYA PETTY Study Date: 07/30/2023 Performing: Otis Nix MD Ht: 63 inches 160.02 cm : 1960 Wt: 203 lbs 92.08 kg Age: 63 Gender: female BSA: 1.95 PROCEDURE(S) PERFORMED [id number])LHC/COR/LV CLINICAL PROFILE AND INDICATIONS Indications: Suspected CAD Heart Failure: None CONCLUSIONS Mild nonocclusive coronary artery disease especially involving the diagonal branch of the left anterior descending artery and mild right coronary artery disease. Preserved ejection fraction. RECOMMENDATIONS Medical therapy DESCRIPTION OF PROCEDURE The patient arrived to the procedure lab. The risks and benefits of the procedure as well as a full description of our services here and current unavailability of surgical backup were fully explained to the patient and/or their significant other prior to the catheterization. The Timeout was completed, verifying the correct patient and procedure. The patient's procedural site was prepped and draped in the usual fashion. Local anesthetic was given subcutaneously to right radial region with Lidocaine 2%. Using a modified Seldinger technique, arterial access was obtained via the right radial artery, a 6Fr sheath was inserted. Left Coronary Artery selective angiography was performed in multiple views using a 5 Fr. 4.0 [place] catheter. Right Coronary Artery selective angiography was then performed in multiple views using a 5 Fr. 4.0 [place] catheter. Left Ventriculography was performed in RAM projection using a 5 Fr. Pigtail catheter. LV to AO pullback pressures were then recorded.The arterial sheath was pulled and a TR Band was applied for hemostasis w/ 9ml air CORONARY ANGIOGRAPHY DOMINANCE: Right Dominant LEFT HEART ASSESSMENT Left Ventricular Ejection Fraction: by LV Gram 60 % Normal LV wall motion Normal Left Ventricular systolic function LEFT MAIN: Angiographically normal LEFT ANTERIOR DESCENDING ARTERY: Medium size vessel which gave off a diagonal branch which had 3 side branches with moderate diffuse disease of approximately 50% in each side branch. The LAD itself has mild diffuse disease. CIRCUMFLEX ARTERY: Mild luminal irregularities less than 30% RIGHT CORONARY ARTERY: Mild luminal irregularities less than 30% COMPLICATIONS No Complications PROCEDURE MEDICATIONS Versed 1 mg IV Fentanyl 50 mcg IV Versed 1 mg IV Oxygen: 2 L/min via nasal cannula Heparin given IA 07/30/2023 08:01:47 Verapamil 2.5mg, Ntg 100mcgs, 3000 units of Heparin given IA 07/30/2023 08:01:47 SUMMARY OF HEMODYNAMIC DATA Time AIR REST ECG 07:20:45 AO 136/72 (95) SA 08:05:28 LV 151/7, 26 08:10:21 LV 138/6, 20 08:10:29 LV 142/16, 32 08:11:03 LV 138/8, 26 08:11:12 LVp 149/8, 22 08:11:16 AOp 0/0 (68) 08:11:23 08:23:24 Signed By Otis Nix MD On 07/30/2023 08:26:56 Otis Nix MD
== END 2023-07-30 09:45 | disposition home or self-care (01) ==
LOC: CLSP 07:03
PROVIDERS: PCP Internal Medicine; Referring Provider Internal Medicine Cardiovascular Disease; Visit Provider Internal Medicine Cardiovascular Disease
DX: I25.10 Atherosclerotic heart disease of native coronary artery without angina pectoris (principal); J44.9 Chronic obstructive pulmonary disease, unspecified; R06.02 Shortness of breath; Z82.49 Family history of ischemic heart disease and other diseases of the circulatory system; I10 Essential (primary) hypertension; K21.9 Gastro-esophageal reflux disease without esophagitis; G47.33 Obstructive sleep apnea (adult) (pediatric); Z87.891 Personal history of nicotine dependence; M94.0 Chondrocostal junction syndrome [Tietze]
CPT/HCPCS: 93458; 99152; 99153; J7040; Q9967; C1769; C1894

== ENCOUNTER → 2023-08-23 | Outpatient (CLI) | payer OTHER, SELFPAY ==
[2023-08-23 12:38] LABS: Ferritin 12 ng/mL (8-252); Iron 53 ug/dL (50-170); Iron Binding Capacity,Total 291 ug/dL (250-450)
== END | disposition home or self-care (01) ==
LOC: BIMLAB 09:15
PROVIDERS: PCP Internal Medicine; Visit Provider Internal Medicine
DX: D64.9 Anemia, unspecified (principal); R73.03 Prediabetes
CPT/HCPCS: 36415; 82728; 83036; 83540; 83550

== ENCOUNTER → 2023-11-02 | Outpatient (CLI) | payer OTHER, SELFPAY | END | disposition home or self-care (01) | LOC: SL 11:56 | PROVIDERS: PCP Internal Medicine; Referring Provider Nurse Practitioner Acute Care; Visit Provider Nurse Practitioner Acute Care | DX: G47.33 Obstructive sleep apnea (adult) (pediatric) (principal) | CPT/HCPCS: 98960; G0463 ==

== ENCOUNTER → 2023-12-10 | Outpatient (CLI) | payer OTHER, SELFPAY ==
[2023-12-10 12:24] LABS: Absolute Lymphocyte Count 3.43 X10^3/uL (0.83-4.51); Absolute Neutrophil Count 5.3 X10^3/uL (2.0-7.7); Basophil# 0.06 X10^3/uL; Basophil% 0.6 % (0-1); Eosinophil# 0.24 X10^3/uL; Eosinophils% 2.4 % (0-5); Hematocrit 37.1 % (37-47); Hemoglobin 11.1 g/dL (12.0-15.0); Lymphocyte # 3.43 X10^3/ul (0.83-4.51); Lymphocyte % 34.5 % (19-41); Mean Corp Hgb Conc 29.9 g/dL (32-36); Mean Corpuscular Hgb 27.8 pg (27.0-32.0); Mean Corpuscular Volume 92.8 fL (81-99); Mean Platelet Vol. 10.1 fl (6.2-12.0); Monocyte# 0.89 X10^3/uL; NRBC Flagged by Analyzer 0 % (0-5); Neutrophil # 5.25 X10^3/uL (2.7-7.7); Neutrophil % 52.9 % (47-70); Platelet Count 334 K/mm3 (150-450); RBC Distribution Width CV 16.1 % (11.6-14.6); RBC Distribution Width SD 54.5 fl (35.1-43.9); White Blood Count 9.9 K/mm3 (4.4-11.0)
[2023-12-10 12:56] LABS: Hemoglobin A1c 5.7 % (3.8-5.6)
[2023-12-10 12:59] LABS: ALB/GLOB Ratio 0.8 RATIO (0.9-2.4); AST(SGOT) 18 U/L (15-37); Alanine Aminotransfer ALT/SGPT 26 U/L (13-56); Albumin, Serum 3.3 g/dL (3.2-5.0); Alkaline Phosphatase 108 U/L (45-117); Anion Gap 6 (5-15); BUN 19 mg/dL (7-18); BUN/Creat Ratio 23.3 RATIO (10-20); Calcium,Total 9.5 mg/dL (8.5-10.1); Chloride 104 mmol/L (98-107); Cholesterol 182 mg/dL (200); Creatinine, Serum 0.82 mg/dL (0.55-1.02); EST Glomerular Filtration Rate 75 mL/min (>60); Est Glom Filt Rate - Afr Amer 91 mL/min (>60); Glucose 104 mg/dL (74-106); High Density Lipoprotein 74 mg/dL; Potassium 4.3 mmol/L (3.5-5.1); Protein, Total 7.3 g/dL (6.4-8.2); Sodium Level 139 mmol/L (136-145); Triglycerides 100 mg/dL; Very Low Density Lipoprotein 20 mg/dL (5-40)
== END | disposition home or self-care (01) ==
LOC: BIMLAB 08:49
PROVIDERS: PCP Internal Medicine; Referring Provider Internal Medicine; Visit Provider Internal Medicine
DX: Z00.00 Encounter for general adult medical examination without abnormal findings (principal); R73.03 Prediabetes
CPT/HCPCS: 36415; 80053; 80061; 83036; 85025

== ENCOUNTER → 2024-02-21 | Outpatient (CLI) | payer OTHER, SELFPAY ==
[2024-02-21 17:13] LABS: Erythrocyte Sedimentation Rate 15 mm/hr (0-30)
[2024-02-21 17:29] LABS: LDH 211 U/L (84-246)
[2024-02-26 03:07] LABS: Anti-Parietal Cell AB, QN 1.4 Units (0.0-20.0); Cytoplasmic Ab (C-ANCA) <1:20 titer (Neg:<1:20); Gastrin, Serum 304 pg/mL (0-115); Immunoglobulin A 219 mg/dL (87-352); Immunoglobulin E 193 IU/mL (6-495); Immunoglobulin G 1080 mg/dL (586-1602); Immunoglobulin M 94 mg/dL (26-217); Perinuclear Ab (P-ANCA) <1:20 titer (Neg:<1:20)
[2024-02-26 15:08] LABS: Beef <0.10 kU/L (Class 0); Chocolate <0.10 kU/L (Class 0); Codfish <0.10 kU/L (Class 0); Corn 0.37 kU/L (Class I); Egg, Whole <0.10 kU/L (Class 0); Milk (Cow) 0.15 kU/L (Class 0/I); Mussels 0.15 kU/L (Class 0/I); Peanut 0.55 kU/L (Class I); Pork <0.10 kU/L (Class 0); Salmon <0.10 kU/L (Class 0); Shrimp 0.12 kU/L (Class 0/I); Soybean 0.34 kU/L (Class I); Tuna <0.10 kU/L (Class 0); Wheat 0.42 kU/L (Class I)
== END | disposition home or self-care (01) ==
LOC: LAB 15:59
PROVIDERS: PCP Internal Medicine; Referring Provider Internal Medicine Gastroenterology; Visit Provider Internal Medicine Gastroenterology
DX: K52.839 Microscopic colitis, unspecified (principal)
CPT/HCPCS: 36415; 82784; 82785; 82941; 83516; 83615; 85652; 86003; 86005; 86037; 86140; 86316; 86340

== ENCOUNTER → 2024-02-22 | Outpatient (CLI) | payer OTHER, SELFPAY ==
[2024-02-24 17:08] LABS: Pancreatic Elastase, Fecal 423 (>200)
[2024-02-25 06:09] LABS: Calprotectin, Stool 184 ug/g (0-120); Fats, Neutral Normal (.); Fats, Total Normal (.)
== END | disposition home or self-care (01) ==
LOC: MTLAB 07:29
PROVIDERS: PCP Internal Medicine; Referring Provider Internal Medicine Gastroenterology; Visit Provider Internal Medicine Gastroenterology
DX: K52.839 Microscopic colitis, unspecified (principal)
CPT/HCPCS: 82274; 82653; 82705; 83630; 83993; 87177; 87209; 87329; 87493; 87506

== ENCOUNTER → 2024-03-07 | Outpatient (CLI) | payer OTHER, SELFPAY ==
--- NOTE | 2024-03-07 12:23 | BI_ITS ---
MAMMOGRAPHY - BILATERAL SCREENING REASON FOR EXAM: Female, 63 years old. Routine annual screening examination. PERTINENT HISTORY: Non-contributory. TECHNIQUE: Digital bilateral breast sofía (3D mammographic acquisition) in the CC and MLO projections. 2-D mediolateral oblique (MLO) and craniocaudad (CC) views of both breasts were obtained. CAD: Full Field Digital Mammography with Computer Added Detection was performed. COMPARISON: Comparison is made with prior study March 03, 2023 and March 18, 2022. FINDINGS: Breast Composition: The breasts are heterogeneously dense, which may obscure small masses. There are no dominant masses or suspicious calcifications. Stable bilateral fat-containing axillary lymph nodes. No other significant abnormalities are identified. There has been no significant change since the prior study. BI/SCRN MAMM (CAD)W/SOFÍA BILAT IMPRESSION: Stable bilateral screening mammogram. Yearly follow-up mammogram recommended. (A) ASSESSMENT CATEGORY: BIRADS Category 2: Benign. A letter regarding these results will be sent to the patient by the facility within 30 days. Approximately 10% of breast cancers are not detected by mammography. A normal mammogram should not delay biopsy of a clinically suspicious abnormality. [id number] Electronically Signed: Jack Shea MD at 13:10 EST ,
== END | disposition home or self-care (01) ==
LOC: OPBI 12:23
PROVIDERS: PCP Internal Medicine; Referring Provider Internal Medicine; Visit Provider Internal Medicine
DX: Z12.31 Encounter for screening mammogram for malignant neoplasm of breast (principal)
CPT/HCPCS: 77063; 77067

== ENCOUNTER → 2024-04-11 | Outpatient (CLI) | payer OTHER, SELFPAY ==
--- NOTE | 2024-04-11 07:30 | PET_ITS ---
EXAMINATION: [address] ? INDICATIONS: 63-year-old female with a history of neuroendocrine tumor-neoplasm with elevation of the chromogranin serum levels. ? COMPARISON EXAMINATION: None available ? TECHNIQUE: Following the intravenous administration of 5.12mCi of 68 GA DOTATATE via the left antecubital fossa, multiplanar image acquisitions of the head, neck, chest, abdomen and pelvis to the level of the midthigh were obtained. High resolution thin slices (1.25 mm) were acquired for reconstruction with isotropic voxel resolution in multiple orthogonal planes. ? THE KRENNING SCORING SYSTEM: 0-No Uptake; 1-Very low radiopharmaceutical concentration; 2? to liver; 3-> liver; 4->spleen. (Dory et al., [place] Journal of Gastroenterology, Hepatology 31:S219 1998). ? SUV Reference values: Liver: 12.3? spleen: 34.2 ? HEIGHT:?? 63 inches WEIGHT:?? 176 pounds ? FINDINGS: ? HEAD/NECK: Symmetric physiologic tracer uptake is noted in the bilateral submandibular and parotid glands. There is visualization of the hypothalamus and midline skull base. There is no evidence of abnormal increased tracer uptake within the context of the cranial vault. ? Physiologic uptake is identified in the midline skull base consistent with visualization of the pineal gland. ? CHEST:? There is no quantitative scintigraphic evidence of abnormal increased glucose metabolism within the context of the bilateral hemithorax pulmonary parenchyma, right and left hemithorax at the pleural interface, mediastinal structures, and left-right thoracic perihilum. ? CT of the chest demonstrates the following anatomic characteristics: Atherosclerotic calcification is defined in the thoracic aorta without evidence of dilatation, aneurysm formation. Coronary artery calcification is observed. Mediastinal and bilateral axillary soft tissue demonstrates no evidence of increased tracer uptake. The ground glass density defined in the right lower posterior lung zone, right lower lobe is nontracer avid. ? ABDOMEN/PELVIS: Physiologic tracer uptake is noted in the hepatic and splenic parenchyma, bilateral renal units, urinary bladder, and visualized intestinal tract, the right and left adrenal glands. ? CT of the abdomen and pelvis is remarkable for the following: Atherosclerotic calcification is defined in the abdominal aorta without evidence of dilatation, aneurysm formation. Abdominal-pelvic arterial calcification is observed. Colonic diverticulosis is demonstrated. Calcified phlebolith formation is noted in the bilateral lower hemipelvis.? ? SKELETAL:? Degenerative changes defined in the cervical, thoracic and lumbar spine. Orthopedic hardware placement is noted in the lower lumbar spine commensurate with spinal fusion operative intervention. ? PET/PET/CT Tumor Base -Thigh Init IMPRESSION: NEGATIVE EXAMINATION. There is no quantitative scintigraphic evidence of somatostatin receptor avid neoplasia on inspection of whole body acquisitions. Electronic Signature Jhon Zhao D.O. Accurate Quantification of SUVs and standardized KRENNING scores for this report are calculated using the exclusive [employer], ([place]. Patent No. [phone] [place] patent [phone] ). Standardization and correction of the FDG SUV metric exclusively available with [employer] intellectual property, allow for vendor non-specific objective quantitative sequential FDG PET-CT comparison and otherwise unobtainable optimization of the sensitivity and specificity of the examination. [email or web address] Electronically Signed: Jhon Zhao DO at 22:58 EST ,
== END | disposition home or self-care (01) ==
LOC: ONC 07:20
PROVIDERS: PCP Internal Medicine; Referring Provider Internal Medicine Gastroenterology; Visit Provider Internal Medicine Gastroenterology
DX: R89.1 Abnormal level of hormones in specimens from other organs, systems and tissues (principal)
CPT/HCPCS: 78815; A9587

== ENCOUNTER → 2024-04-21 | Outpatient (CLI) | payer OTHER, SELFPAY | END | disposition home or self-care (01) | LOC: MTLAB 13:25 | PROVIDERS: PCP Internal Medicine; Referring Provider Family Medicine; Visit Provider Family Medicine | DX: R30.0 Dysuria (principal) | CPT/HCPCS: 87086 ==

== ENCOUNTER → 2024-06-16 | Outpatient (CLI) | payer OTHER, SELFPAY ==
--- NOTE | 2024-06-16 08:05 | CT_ITS ---
PROCEDURE: LOW DOSE CT LUNG SCREENING REASON FOR EXAM: Patient has smoked 1 pack per day for 48 years. TECHNIQUE: Low Dose CT Lung Screening without contrast COMPARISON: Comparison is made with prior study dated June 18, 2023. FINDINGS: PULMONARY NODULES: (Only nodules >6mm are reported) Nodules described below are on series 1 unless otherwise specified. Pulmonary Nodules: No concerning pulmonary nodules. Hardware:None Lymph Nodes:No mediastinal hilar or axillary lymphadenopathy. Heart and Vasculature:Normal heart size. No pericardial effusion.Thoracic aorta and pulmonary arteries have normal contours; noncontrast technique limits evaluation. Coronary Artery Calcifications: Present Lungs and Airways: The lungs are normally expanded and clear. Pleura:No pleural effusion. No pneumothorax. Upper Abdomen:Visualized portions of the upper abdominal viscera are unremarkable. Bones:Degenerative changes of the thoracic spine. CT/Low Dose CT Lung Screening IMPRESSION: 1. BASED ON THE ACR LUNG RADS FOR THE MOST SUSPICIOUS NODULE (IF ANY) DESCRIBE D IN THIS REPORT, THE OVERALL LUNG RADS SCORE IS 2.2 - BENIGN (BASED ON IMAGING FEATURES OR INDOLENT BEHAVIOR). RECOMMEND 12-Wed SCREENING LDCT.. 2. SMOKING CESSATION COUNSELING IS RECOMMENDED IF THE PATIENT IS STILL SMOKING . 3. OTHER SIGNIFICANT FINDINGSNone. One or more dose reduction techniques were used (e.g., Automated exposure contr ol, adjustment of the mA and/or kV according to patient size, use of iterative reconstruction technique). The following information is provided for reference:Lung-RADS 2021 Assessment C ategories. Additional information involving Lung-RADS is available at www.acr.org. 0-INCOMPLETE 1-NEGATIVE:No nodules or definitely benign nodules. Complete, central, popcorn , or centric ring calcifications OR fat containing 2-BENIGN APPEARANCE (based on imaging features or indolent behavior). Juxtaple ural nodule: < 10mm AND solid; smooth margins; oval, entiform, or triangular shape Solid nodule: <6mm at baseline or new< 4mm Part solid Nodule: < 6mm total mean diameter at baseline Nonsolid nodule:(GGN) < 30mm OR >=30mm stable or slowly growing Airway nodule, subsegmental at baseline, new, or stable Category 3 nodule stabl e or decreased in size at 6-month follow-up CT or Category 3 or 4A nodules that resolve on follow-up OR category 4B findings prov en to be benign following diagnotic work up. 3 - Probably Benign (Based on imaging features or behavior) Solid Nodule: >= 6 to <8mm at baseline OR new 4 to <6mm Part-solid nodule: >= 6mm toal mean diam. with solid component <6mm at baseline OR new < 6mm total mean diam. Non-solid nodule: GGN >= 30mm at baseline or new Atypical pulmonary cyst: Growing cystic component (mean diam.) of thick-walled cyst Category 4A nodule stable or decreased in size at 3-month follow-up CT (excl.ai rway). 4A - Suspicious Solid nodule: >=8 to < 15mm at baseline OR growing < 8mm OR new 6 to < 8mm Part solid nodule: >= 6mm total mean diam. w/ solid component >=6mm to < 8mm at baseline OR new or growing < 4mm solid component Airway nodule, segmental or more proximal at baseline or new Atypical pulmonary cyst: Thick-walled OR multilocular at baseline OR becomes mu ltilocular 4B - Very Suspicious Airway nodule, segmental or more proximal, and stable or growing Solid nodule: >= 15mm at baseline OR new or growing >= 8mm Part solid nodule: Solid component >= 8mm OR new or growing >= 4mm solid compon ent Atypical pulmonary cyst: Thick-walled with growing wall thickness/nodularity OR Growing multilocular (mean diam.) OR Multilocular with increased loculation or new/increased opacity Slow-growing solid or part solid nodule w/ growth over multiple screening exams 4X - Very Suspicious Category 3 or 4 nodules with additional features that increase the suspicion fo r lung cancer. S - Clinically Significant or potentially significant findings (non-lung cancer ) Reading Location: [id number]
== END | disposition home or self-care (01) ==
PROVIDERS: PCP Internal Medicine; Referring Provider Nurse Practitioner Acute Care; Visit Provider Nurse Practitioner Acute Care
DX: Z12.2 Encounter for screening for malignant neoplasm of respiratory organs (principal); Z87.891 Personal history of nicotine dependence
CPT/HCPCS: 71271

== ENCOUNTER → 2024-09-08 | Outpatient (CLI) | payer OTHER, SELFPAY ==
[2024-09-08 13:44] LABS: Absolute Lymphocyte Count 3.02 X10^3/uL (0.83-4.51); Basophil# 0.04 X10^3/uL; Basophil% 0.4 % (0-1); Eosinophil# 0.16 X10^3/uL; Eosinophils% 1.8 % (0-5); Hematocrit 40.3 % (37-47); Hemoglobin 13.2 g/dL (12.0-15.0); Lymphocyte # 3.02 X10^3/ul (0.83-4.51); Lymphocyte % 33.2 % (19-41); Mean Corp Hgb Conc 32.8 g/dL (32-36); Mean Corpuscular Hgb 31.7 pg (27.0-32.0); Mean Corpuscular Volume 96.6 fL (81-99); Mean Platelet Vol. 10.1 fl (6.2-12.0); Monocyte# 0.83 X10^3/uL; Monocyte% 9.1 % (0-10); NRBC Flagged by Analyzer 0 % (0-5); Neutrophil % 54.8 % (47-70); Platelet Count 313 K/mm3 (150-450); RBC Distribution Width CV 14.4 % (11.6-14.6); RBC Distribution Width SD 51.7 fl (35.1-43.9); Red Blood Count 4.17 M/mm3 (4.2-5.4); White Blood Count 9.1 K/mm3 (4.4-11.0)
[2024-09-08 14:59] LABS: Hemoglobin A1c 5.6 % (<=5.6)
[2024-09-08 15:03] LABS: ALB/GLOB Ratio 1.3 RATIO (0.9-2.4); AST(SGOT) 24 U/L (<=31); Alanine Aminotransfer ALT/SGPT 19 U/L (<=34); Albumin, Serum 4.2 g/dL (3.4-4.8); Alkaline Phosphatase 92 U/L (35-104); Anion Gap 12 (5-15); BUN 18 mg/dL (4-19); BUN/Creat Ratio 23.9 RATIO (10-20); Calcium,Total 10.1 mg/dL (7.6-11.0); Carbon Dioxide 25.1 mmol/L (21.0-32.0); Chloride 97 mmol/L (98-108); Cholesterol 220 mg/dL (<=200); Creatinine, Serum 0.73 mg/dL (0.70-1.20); EST Glomerular Filtration Rate 92 (>60); Globulin 3.2 g/dL (2.2-4.2); Glucose 89 mg/dL (70-99); High Density Lipoprotein 79 mg/dL; Low Density Lipoprotein Calc. 123 mg/dL; Potassium 4.4 mmol/L (3.3-5.1); Protein, Total 7.3 g/dL (5.9-8.4); Sodium Level 135 mmol/L (133-145); Total Bilirubin 0.25 mg/dL (0.00-1.30); Triglycerides 90 mg/dL; Very Low Density Lipoprotein 18 mg/dL (5-40)
== END | disposition home or self-care (01) ==
LOC: BIMLAB 09:23
PROVIDERS: PCP Internal Medicine; Referring Provider Internal Medicine; Visit Provider Internal Medicine
DX: Z00.00 Encounter for general adult medical examination without abnormal findings (principal); R73.03 Prediabetes
CPT/HCPCS: 36415; 80053; 80061; 83036; 85025

== ENCOUNTER → 2025-03-08 | Outpatient (CLI) | payer OTHER, SELFPAY ==
--- NOTE | 2025-03-08 13:00 | BD_ITS ---
PROCEDURE: DEXA BONE DENSITY STUDY 03/08/2025 REASON FOR EXAM: POST MENOPAUSAL F, age 64 y/o . Postmenopausal. TECHNIQUE: Procedure Code: BDDBD Modality: DX Procedure: DEXA BONE DENSITY STUDY COMPARISON: Prior study dated March 18, 2022. FINDINGS: BMD and T-SCORES Lumbar spine: 0.881 g/cm2, T-score -0.9 Levels: L1 through L4 Left femoral neck: 0.774 g/cm2, T-score -0.7 Femoral neck comparison data not recommended for monitoring change. Left total hip: 0.830 g/cm2, T-score -0.9 Change from prior: Loss of 6.1%. Right femoral neck: 0.758 g/cm2, T-score -0.8 Femoral neck comparison data not recommended for monitoring change. Right total hip: 0.815 g/cm2, T-score -1.0 Change from prior: Loss of 6%. Left 1/3 radius: 0.628 g/cm2, T-score 0.9 Change from prior: . The World Health Organization has defined the following categories based on bone density: Normal bone density: T-score equal to or greater than -1.0 Osteopenia: T-score between -1.0 and -2.5 Osteoporosis: T-score equal to or less than -2.5 FRAX (or Comparable) Fracture Risk Assessment: 10 Year Probability of Fracture: Major Osteoporotic Fracture: 7.3% Hip Fracture: 0.4% (Note: FRAX is not to be reported in setting of normal range bone density, osteoporosis on DEXA, known history of osteoporosis, prior osteoporotic hip or vertebral fracture, or for any patient undergoing pharmacological treatment for bone loss.) The National Osteoporosis Foundation (NOF) recommends pharmacological treatment for patients with a FRAX 10-year risk of 3% or higher for a hip fracture, or 20% or higher for a major osteoporotic fracture, to prevent osteoporosis and reduce fracture risk. The patient does not meet the pharmacological treatment recommendations for prevention of osteoporosis. BD/Dexa Bone Density Study IMPRESSION: NORMAL T-SCORES. Recommend follow-up as clinically warranted. Reading Location: [facility]
--- NOTE | 2025-03-08 13:30 | BI_ITS ---
EXAM: SCRN MAMM (CAD)W/SOFÍA BILAT DATE: 03/08/2025 CLINICAL HISTORY: F, Age 64 y/o , BREAST CANCER SCREENING No family history. TECHNIQUE: Procedure Code: [id number] Modality: MG Procedure: SCRN MAMM (CAD)W/SOFÍA BILAT COMPARISON: Prior exam(s) dated March 07, 2024.. FINDINGS: TISSUE DENSITY: The breasts are heterogeneously dense, which may obscure small masses. Bilateral Breast Mammographic Findings: No significant masses, calcifications or other abnormalities are identified. Stable small bilateral axillary lymph nodes. No suspicious masses, areas of developing architectural distortion, or suspicious calcifications. There has been no significant interval change. BI/SCRN MAMM (CAD)W/SOFÍA BILAT IMPRESSION: Stable bilateral screening mammogram. OVERALL FINAL ASSESSMENT BI-RADS 2: BENIGN RECOMMENDATION: Routine annual follow-up in 1 Year Additional Recommendation none A letter with findings and recommendations will be mailed to the patient. Reading Location: [facility]
== END | disposition home or self-care (01) ==
LOC: OPBD 13:01
PROVIDERS: PCP Internal Medicine; Referring Provider Internal Medicine; Visit Provider Internal Medicine
DX: Z12.31 Encounter for screening mammogram for malignant neoplasm of breast (principal); Z78.0 Asymptomatic menopausal state
CPT/HCPCS: 77063; 77067; 77080